=== PATIENT | female | born 1990 | race Caucasian/White ===

== ENCOUNTER → 2016-10-15 | Outpatient (CLI) | payer OTHER ==
--- NOTE | 2016-10-15 22:59 | REP ---
Clinical: Anatomical evaluation. Comparison: None . Findings: Examination demonstrates a single live intrauterine in breech presentation. motion is identified by technologist. Placenta is noted anteriorly and grade 0 without evidence for placenta previa or abruption. Amniotic fluid volume is normal. Cervix measures 5.6 cm in length and appears closed. No evidence for nuchal cord. Gestational age by current measurements 20 weeks 0 days with RANI 03/04/2017 . FHR equals 139 beats per minute. BPD 4.7 cm 20 weeks 2 days HC 17.4 cm 19 weeks 6 days AC 15.0 cm 20 weeks 2 days FL 3.3 cm 20 weeks 1 day HL 3.2 cm 20 weeks 3 days HC/AC ratio 1.16 Estimated weight 339 grams ( 56th percentile). Anatomical assessment demonstrates normal structures including cranium, choroid plexus, cavum, cerebellum/posterior fossa, facial features, lungs, diaphragm, stomach, cord insertion/three-vessel cord, kidneys/bladder, and extremities. Limited evaluation of the heart/ventricular outflow tracts and spine noted. Impression: Single live intrauterine in breech presentation. Anatomical limitations as noted above. Remainder of the assessment appears normal. Signed by Kale Ruiz MD 10/15/2016 10:50 P
== END ==
LOC: M SMT 14:45
PROVIDERS: ATTEND Advanced Practice Midwife
DX: Z34.82 Encounter for supervision of other normal pregnancy, second trimester (principal)

== ENCOUNTER → 2016-11-22 | Outpatient (CLI) | payer OTHER ==
--- NOTE | 2016-11-22 16:02 | REP ---
Obstetric sonography: History: Supervision of followup anatomy. Comparison study: 10/15/2016. Findings: Scanning through the gravid uterus demonstrates a viable single intrauterine gestation in a cephalic lie. motion is observed and heart rate is recorded at 133 beats per minute. An anterior grade zero placenta is seen without evidence of previa or abruption. Amniotic fluid is subjectively normal. Closed cervical length is 3.9 cm, measured transabdominally. No extrauterine abnormality is observed. There has been appropriate interval growth. Umbilical cord is seen draping across the [place] shoulders. No anomaly is seen. The following anatomic structures are identified and felt to be sonographically unremarkable today: cranium, choroid plexus, cavum, cerebellum and posterior fossa, face and profile, lungs, four-chamber heart with left and right ventricular outflow tract views, diaphragm, left-sided stomach, abdominal wall cord insertion, three-vessel umbilical cord, kidneys and bladder, spine, upper and lower extremities. Biometry chart: BPD 6.8 cm = 27 weeks 3 days Head circumference 24.8 cm = 27 weeks 0 days Abdominal circumference 22.6 cm = 27 weeks 0 days Femur length 5.2 cm = 27 weeks 6 days Humeral length 4.6 cm = 27 weeks 3 days Cerebellar diameter 2.9 cm = 25 weeks 3 days HC/AC ratio normal 1.1, cephalic index normal 0.77, estimated weight 1059 grams, 2 pounds 5 ounces, greater than 97th percentile for 25 weeks 3 days. Impression: Viable single intrauterine gestation at 27 weeks a 0 days by today's composite sonographic criteria. Expected gestational age estimate based on prior sonography is 25 weeks 3 days. RANI by prior sonography 03/04/2017. anatomic survey is felt to be complete. Estimated weight greater than 97th percentile. Signed by Sekou Mcnamara MD 11/22/2016 04:25 P
== END ==
LOC: M SMT 14:07
PROVIDERS: ATTEND Advanced Practice Midwife
DX: Z34.82 Encounter for supervision of other normal pregnancy, second trimester (principal)

== ENCOUNTER → 2016-12-11 | Outpatient (CLI) | payer OTHER ==
[2016-12-11 14:01] LABS: BASO % 0.3 % (0.0-1.0); EOS # 0.1 K/mm3 (0.0-0.50); EOS % 1.2 % (0.0-3.0); LARGE UNSTAINED CELL # 0.1 K/mm3 (0.0-0.4); LARGE UNSTAINED CELL % 1.2 % (0.0-4.0); LYMPH # 1.5 K/mm3 (1.5-6.5); MEAN CORPUSCULAR HEMOGLOBIN 30.4 pg (27.0-33.0); MEAN CORPUSCULAR HGB CONC 32.6 g/dl (32.0-36.5); MEAN CORPUSCULAR VOLUME 93.1 fl (80.0-96.0); MONO # 0.5 K/mm3 (0.0-0.8); MONO % 4.6 % (0.0-5.0); NEUTROPHILS # 8.4 K/mm3 (1.8-7.7); NEUTROPHILS % 78.7 % (36.0-66.0); PLATELET COUNT, AUTOMATED 251 k/mm3 (150-450); RED CELL DISTRIBUTION WIDTH 13.2 % (11.5-14.5); WHITE BLOOD COUNT 10.6 K/mm3 (4.0-10.0)
== END ==
LOC: M WUC 09:36
PROVIDERS: ATTEND Advanced Practice Midwife
DX: Z34.83 Encounter for supervision of other normal pregnancy, third trimester (principal)

== ENCOUNTER → 2016-12-18 | Outpatient (CLI) | payer OTHER ==
--- NOTE | 2016-12-18 08:31 | REP ---
Right upper quadrant sonography: History: Upper abdominal pain. Comparison study: No comparison study. The patient is . Findings: Scanning through the right upper quadrant of the abdomen demonstrates a normal sized, thin-walled gallbladder without evidence of stone or polyp. Common bile duct is normal measuring 0.4 cm in greatest diameter. No focal liver lesion is seen. Liver size is normal. No pancreatic abnormality is observed. No right renal abnormality is seen. There is no evidence of ascites. The right kidney measures 11.1 x 5.3 x 4.9 cm. heart rate is recorded at 144 beats per minute. Impression: Negative right upper quadrant sonography. Signed by Sekou Mcnamara MD 12/18/2016 08:24 A
[2016-12-18 10:01] LABS: MEAN CORPUSCULAR HEMOGLOBIN 30.7 pg (27.0-33.0); MEAN CORPUSCULAR HGB CONC 33.5 g/dl (32.0-36.5); MEAN CORPUSCULAR VOLUME 91.6 fl (80.0-96.0); RED CELL DISTRIBUTION WIDTH 13.1 % (11.5-14.5); WHITE BLOOD COUNT 9.8 K/mm3 (4.0-10.0)
[2016-12-18 10:12] LABS: ALBUMIN 2.5 GM/DL (3.2-5.2); ALBUMIN/GLOBULIN RATIO 0.81 (1.00-1.93); ALKALINE PHOSPHATASE 111 U/L (45-117); ALT/SGPT 15 U/L (12-78); AMYLASE 52 U/L (25-115); AST/SGOT 16 U/L (15-37); BILIRUBIN,DIRECT < 0.1 MG/DL (0.0-0.2); BILIRUBIN,TOTAL 0.3 MG/DL (0.2-1.0); TOTAL PROTEIN 5.6 GM/DL (6.4-8.2)
[2016-12-18 14:04] LABS: CONTROL LINE MONO EB INT CTR LINE PRESENT; MONO REFLEX EBV VCA IgM NEGATIVE (NEGATIVE)
== END ==
LOC: M LAB 07:51 → M RAD 07:51
PROVIDERS: ATTEND Advanced Practice Midwife
DX: R10.11 Right upper quadrant pain (principal)

== ENCOUNTER → 2016-12-24 | Outpatient (CLI) | payer OTHER | LOC: M LAB 09:23 | PROVIDERS: ATTEND Advanced Practice Midwife | DX: Z34.82 Encounter for supervision of other normal pregnancy, second trimester (principal) ==

== ENCOUNTER → 2017-02-06 | Outpatient (REF) | payer OTHER | LOC: M LAB REF 17:06 | PROVIDERS: ATTEND Advanced Practice Midwife | DX: O24.410 Gestational diabetes mellitus in pregnancy, diet controlled (principal) ==

== ENCOUNTER → 2017-02-07 | Outpatient (CLI) | payer OTHER ==
--- NOTE | 2017-02-07 18:19 | REP ---
OB ULTRASOUND: HISTORY: growth. COMPARISON: 10/15/2016 A single intrauterine is present in vertex presentation. BPD 9.5 cm = 38 weeks 4 days HC 33.9 cm = 39 weeks 0 days AC 32.4 cm = 36 weeks 2 days FL 7.0 cm = 36 weeks 0 days HL 6.2 cm = 36 weeks 1 day heart rate is 128 beats per minute. weight is 3021 grams. The placenta is anterior. There is no placental previa or abruption. The amniotic fluid is within normal limits. The YARITZA is 12.6. There is no abnormality in the adnexal or cul-de-sac. Cervix length is 3.6 cm. IMPRESSION: A single intrauterine in present in vertex presentation. Gestational age by ultrasound is 37 weeks 1 day. Signed by Jay Rogers MD 02/07/2017 06:31 P
== END ==
LOC: M RAD 16:56
PROVIDERS: ATTEND Advanced Practice Midwife
DX: O24.410 Gestational diabetes mellitus in pregnancy, diet controlled (principal)

== ENCOUNTER → 2017-02-25 | Outpatient (CLI) | payer OTHER ==
[~2017-02-25] MED LIST: ALBU17IN INH; CALC600T57 PO; DHA1CAP2 PO; PERC5TAB6 PO; PREN1TAB11 PO
--- NOTE | 2017-02-25 17:13 | REP ---
Clinical: Growth discrepancy . Comparison: 02/07/2017 . Findings: Examination demonstrates a single live advanced intrauterine in cephalic presentation. motion is identified by technologist. Placenta is noted anteriorly and grade II without evidence for placenta previa or abruption. Amniotic fluid volume is lower limits of normal. Nuchal cord cannot be excluded. Gestational age by LMP 39 weeks 0 days with RANI 03/04/2017 . Gestational age by current measurements 40 weeks 0 days with RANI 02/25/2017 . FHR equals 136 beats per minute. BPD 9.9 cm 40 weeks 4 days HC 35.5 cm 41 weeks 4 days AC 39.3 cm (beyond range) FL 7.9 cm 40 weeks 1 day HL 6.7 cm 39 weeks 1 day HC/AC ratio 0.90 Estimated weight 4629 grams (greater than 97%). Amniotic fluid index equals 7.3 cm (7.2 - 22.6). Impression: Estimated weight greater than 97 percentile Amniotic fluid volume lower limits of normal. Signed by Kale Ruiz MD 02/25/2017 05:04 P
== END ==
LOC: M RAD 16:13
PROVIDERS: ATTEND Advanced Practice Midwife
DX: O26.843 Uterine size-date discrepancy, third trimester (principal); O24.410 Gestational diabetes mellitus in pregnancy, diet controlled; Z3A.39 39 weeks gestation of pregnancy

== ENCOUNTER 2017-03-04 05:42 | Inpatient (IN) | payer OTHER ==
[2017-03-04] VITALS (9 sets, daily range): BP systolic 114–152; BP diastolic 62–95
[~2017-03-04] VITALS: Ht 157.5 cm; Wt 92.0 kg
[~2017-03-04 05:42] MED LIST changes: -PERC5TAB6 PO
[2017-03-04] MEDS ORDERED: LR 800 ML IV ONE (06:00)
[2017-03-04] MEDS ORDERED: LR 1,000 ML IV SCH ×2 (06:00→09:45)
[2017-03-04] MEDS ORDERED: BICITRA 30ML SOLN UDC PO ONE (06:00)
[2017-03-04 06:41] LABS: MEAN CORPUSCULAR HEMOGLOBIN 31.8 pg (27.0-33.0); MEAN CORPUSCULAR HGB CONC 34.4 g/dl (32.0-36.5); MEAN CORPUSCULAR VOLUME 92.5 fl (80.0-96.0); RED CELL DISTRIBUTION WIDTH 13.8 % (11.5-14.5); WHITE BLOOD COUNT 8.9 K/mm3 (4.0-10.0)
[2017-03-04] MEDS ORDERED: MORPHINE PRES-FREE INJ 10 MG/10 ML VIAL (J2274) As Ordered ONE (07:14)
[2017-03-04] MEDS ORDERED: METOCLOPRAMIDE INJ 10MG/2ML VIAL (J2765) IV PRN ×2 (07:49→09:45)
[2017-03-04] MEDS ORDERED: ONDANSETRON 4MG/2ML VIAL (J2405) IV PRN ×2 (07:49→09:45)
[2017-03-04] MEDS ORDERED: NALBUPHINE HCL 10 MG/ML AMP (J2300) IV PRN (07:49)
[2017-03-04] MEDS ORDERED: NALOXONE INJ 0.4 MG/1 ML VIAL (J2310) IV PRN ×2 (07:49)
[2017-03-04] MEDS ORDERED: LIDOCAINE 2% INJ 100 MG/5 ML SDV (FOR ANES.) As Ordered ONE (08:34)
[2017-03-04] MEDS ORDERED: ROCURONIUM BROMIDE 50 MG/5 ML VIAL As Ordered ONE (08:34)
[2017-03-04] MEDS ORDERED: PROPOFOL 200 MG/20 ML VIAL As Ordered ONE (08:34)
[2017-03-04] MEDS ORDERED: SUCCINYLCHOLINE 100 MG/5 ML SYRINGE (J0330) As Ordered ONE (08:34)
[2017-03-04] MEDS ORDERED: KETOROLAC 60 MG/2 ML VIAL (J1885) As Ordered ONE (08:35)
[2017-03-04] MEDS ORDERED: ONDANSETRON 4MG/2ML VIAL (J2405) As Ordered ONE ×2 (08:35→09:20)
[2017-03-04] MEDS ORDERED: OXYTOCIN INJ 10 UNITS/ML VIAL (J2590) As Ordered ONE (08:36)
[2017-03-04] MEDS ORDERED: GLYCOPYRROLATE INJ 0.2 MG/ML 2 ML VIAL As Ordered ONE (08:37)
[2017-03-04] MEDS ORDERED: NEOSTIGMINE 10 MG/10 ML VIAL (J2710) As Ordered ONE (08:37)
[2017-03-04] MEDS: LR 1,000 ML IV SCH ×2 (08:57→16:57)
[2017-03-04] MEDS ORDERED: RHOGAM 300 MCG (1500 IU) INJ (J2790) IM SCH (09:00)
[2017-03-04] MEDS ORDERED: DOCUSATE SODIUM 100 MG CAP PO PRN (09:00)
[2017-03-04] MEDS ORDERED: OXYTOCIN DRIP 30 UNITS in APPROPRIATE DILUENT 1 EA IV ONE (09:00)
[2017-03-04] MEDS ORDERED: PERCOCET 5MG/325MG TAB PO PRN (09:00)
[2017-03-04] MEDS: PRENATAL VITAMIN TAB PO SCH (09:00)
[2017-03-04] MEDS ORDERED: MEASLES,MUMPS,RUBELLA VACCINE INJ (MMR-II) (90707) SC SCH (09:00)
[2017-03-04] MEDS: ONDANSETRON 4MG/2ML VIAL (J2405) IV PRN ×2 (09:23→17:08)
[2017-03-04] MEDS ORDERED: PERC5TAB6 PO (09:39)
[2017-03-04] MEDS ORDERED: MEPERIDINE INJ 25 MG/ML VIAL (J2175) IV PRN (09:45)
[2017-03-04] MEDS ORDERED: KETOROLAC 30 MG/ML VIAL (J1885) IV PRN (09:45)
[2017-03-04] MEDS ORDERED: fentaNYL 100 MCG/2 ML INJECTION (J3010) IV PRN (09:45)
[2017-03-04] MEDS ORDERED: METOCLOPRAMIDE INJ 10MG/2ML VIAL (J2765) As Ordered ONE (09:53)
[2017-03-04] MEDS ORDERED: OXYTOCIN DRIP 30 UNITS in APPROPRIATE DILUENT 1 EA IV SCH (11:45)
[2017-03-04] MEDS: KETOROLAC 30 MG/ML VIAL (J1885) IV SCH ×2 (14:54→21:09)
--- NOTE | 2017-03-04 18:26 | RO ---
DATE OF PROCEDURE: 03/04/2017 PREPROCEDURE DIAGNOSES: 40 weeks 0/7 days gestation, Suspected macrosomia. POSTPROCEDURE DIAGNOSES: 40 weeks 0/7 days gestation, Suspected macrosomia. PROCEDURE: Primary low transverse section. SURGEON: Jay Singh MD CATTLE BROKER: Chriss Redd ANESTHESIA: Spinal, converted to general preoperatively. ESTIMATED BLOOD LOSS: 500 mL. URINE OUTPUT: 10 mL. FINDINGS: 10 pound 5 ounce or 4674 gram male , Scores 9 and 9. DESCRIPTION OF PROCEDURE: The patient was taken the operating room where spinal anesthesia was induced after noting high spinal the decision was made to convert preoperative to general anesthesia. This was performed without difficulty by anesthesia. The patient was prepped and draped in a sterile fashion in the supine position. A Bland catheter was then laced. A Pfannenstiel skin incision was made with a scalpel and carried through to the fascia. The fascia was nicked and extended. The fascia was resected of the rectus muscles. The peritoneal cavity was entered. A bladder flap was created. A curvilinear incision was made in the lower uterine segment. The infant was delivered from the vertex position without difficulty. The shoulders were delivered with ease. The cried spontaneously. The cord was doubly clamped and cut. The infant was handed off to the awaiting neonatologists. The placenta was expressed. The uterus was exteriorized. The uterine incision was closed with #0 Vicryl in a running locked fashion. A second imbricating layer of #0 Vicryl was placed. The uterus was placed back in the abdominal cavity. The peritoneum was closed with #2-0 Vicryl. The fascia was closed with# 0 Vicryl in a running fashion. The deep layer was irrigated and closed with #3-0 chromic. The skin was closed with #4-0 Monocryl subcuticular sutures. Sponge, instrument and needle counts were correct.
[2017-03-05 02:20] VITALS: BP 111/71
[2017-03-05] MEDS: KETOROLAC 30 MG/ML VIAL (J1885) IV SCH ×2 (03:04→09:18)
[2017-03-05] MEDS: LR 1,000 ML IV SCH ×3 (03:04→11:58)
[2017-03-05] MEDS ORDERED: LR 1,000 ML IV ONE (03:30)
[2017-03-05 06:22] VITALS: BP 125/69
[2017-03-05 07:18] LABS: MEAN CORPUSCULAR HEMOGLOBIN 32.3 pg (27.0-33.0); RED CELL DISTRIBUTION WIDTH 13.9 % (11.5-14.5); WHITE BLOOD COUNT 9.9 K/mm3 (4.0-10.0)
[2017-03-05] MEDS: PERCOCET 5MG/325MG TAB PO PRN ×4 (07:38→22:08)
[2017-03-05] MEDS: PRENATAL VITAMIN TAB PO SCH (09:18)
[2017-03-05 09:59] VITALS: BP 123/60
[2017-03-05 14:00] VITALS: BP 134/71
[2017-03-05] MEDS: IBUPROFEN 800 MG TAB PO SCH (17:01)
[2017-03-05 17:40] VITALS: BP 124/76
[2017-03-05 22:09] VITALS: BP 122/65
[2017-03-06] MEDS: IBUPROFEN 800 MG TAB PO SCH ×2 (00:45→08:25)
[2017-03-06] MEDS: PERCOCET 5MG/325MG TAB PO PRN (04:54)
[2017-03-06 05:40] VITALS: BP 122/73
[2017-03-06] MEDS: PRENATAL VITAMIN TAB PO SCH (08:24)
--- NOTE | 2017-03-06 10:03 | DSES ---
DATE OF ADMISSION: 03/04/2017 DATE OF DISCHARGE: 26-year-old, 1 at 40 and 0/7 weeks gestation presents for a primary section due to suspected macrosomia. She has gestational diabetes, which was diet controlled. Estimated weight by Jose Juan's was greater than 4600 grams. HOSPITALIZATION COURSE; On 03/04/2017, the patient underwent a primary low transverse section for a 10 pound 5 ounce male infant, scores of 9 and 9. There were no complications. Her postoperative course was unremarkable. She had adequate return of bladder and bowel function. She was deemed stable for discharge on postoperative day #2. ADMISSION DIAGNOSES: 1. 40 weeks. 2. Suspected macrosomia. DISCHARGE DIAGNOSIS: Delivered. PROCEDURE: Primary low transverse section. DISPOSITION: The patient will followup with Dr. Singh in 2 weeks for incision check. Postoperative instructions were reviewed.
[2017-03-06] MEDS ORDERED: IBUP-1114 PO (11:13)
== END 2017-03-06 14:00 | disposition home or self-care (01) | DRG 540 ==
LOC: M LDI 05:42 → M OBS 11:09
PROVIDERS: ADMIT Specialist; ATTEND Specialist
PROC: 10D00Z1 Extraction of Products of Conception, Low, Open Approach (ICD-10-PCS; principal; 2017-03-04 07:30)
DX: O36.63X0 Maternal care for excessive fetal growth, third trimester, not applicable or unspecified (principal); O24.420 Gestational diabetes mellitus in childbirth, diet controlled; Z3A.40 40 weeks gestation of pregnancy; Z37.0 Single live birth

== ENCOUNTER → 2017-05-22 | Outpatient (CLI) | payer OTHER ==
[~2017-05-22] MED LIST changes: +IBUP-1114 PO; +PERC5TAB12 PO
[2017-05-22 13:56] LABS: ALBUMIN/GLOBULIN RATIO 1.25 (1.00-1.93); ALKALINE PHOSPHATASE 140 U/L (45-117); ALT/SGPT 21 U/L (12-78); ANION GAP 6 MEQ/L (8-16); AST/SGOT 15 U/L (15-37); BILIRUBIN,TOTAL 0.5 MG/DL (0.2-1.0); BLOOD UREA NITROGEN 9 MG/DL (7-18); CALCIUM LEVEL 9.3 MG/DL (8.5-10.1); CARBON DIOXIDE LEVEL 31 MEQ/L (21-32); CHLORIDE LEVEL 106 MEQ/L (98-107); CHOLESTEROL LEVEL 197 MG/DL (<200); CREATININE FOR GFR 0.56 MG/DL (0.55-1.02); GLOMERULAR FILTRATION RATE > 60.0 (>60); GLUCOSE, FASTING 87 MG/DL (70-105); POTASSIUM SERUM 4.2 MEQ/L (3.5-5.1); SODIUM LEVEL 143 MEQ/L (136-145); TOTAL PROTEIN 7.2 GM/DL (6.4-8.2); TRIGLYCERIDES LEVEL 232 MG/DL (<150)
== END ==
LOC: M WUC 10:16
PROVIDERS: ATTEND Nurse Practitioner Family
DX: Z13.220 Encounter for screening for lipoid disorders (principal)

== ENCOUNTER → 2017-07-01 | Outpatient (CLI) | payer OTHER ==
[2017-07-01 17:56] LABS: FREE T4 0.92 NG/DL (0.76-1.46)
[2017-07-03 14:25] LABS: SJOGREN'S ANTI SS-A 2.8 AI (0.0-0.9); SJOGREN'S ANTI SS-B <0.2 AI (0.0-0.9)
== END ==
LOC: M WUC 14:24
PROVIDERS: ATTEND Nurse Practitioner Family
DX: L65.9 Nonscarring hair loss, unspecified (principal)

== ENCOUNTER → 2017-11-06 | Outpatient (CLI) | payer OTHER | LOC: M WUC 14:41 | DX: M54.5 Low back pain (principal) | CPT/HCPCS: 72110 ==

== ENCOUNTER → 2020-03-02 | Outpatient (CLI) | payer OTHER ==
[2020-03-02 21:47] LABS: CHLAMYDIA DNA AMPLIFICATION NEGATIVE (NEGATIVE); GC DNA AMPLIFICATION NEGATIVE (NEGATIVE)
== END ==
LOC: M WUC 12:56
PROVIDERS: ATTEND Advanced Practice Midwife
DX: O26.851 Spotting complicating pregnancy, first trimester (principal)

== ENCOUNTER → 2020-03-05 | Outpatient (CLI) | payer OTHER | LOC: M WUC 12:43 | PROVIDERS: ATTEND Advanced Practice Midwife | DX: O26.851 Spotting complicating pregnancy, first trimester (principal); Z3A.00 Weeks of gestation of pregnancy not specified ==

== ENCOUNTER → 2020-03-29 | Outpatient (CLI) | payer OTHER ==
[~2020-03-29] MED LIST changes: +B-12100T2 PO; +METF500T13 PO; +SM G150T PO
[2020-03-29 16:25] LABS: GLUCOSE CHALLENGE TEST 1 HOUR 173 MG/DL (LESS THAN 140)
[2020-03-29 16:29] LABS: HEMATOCRIT 38.2 % (36.0-47.0); HEMOGLOBIN 12.7 g/dl (12.0-15.5); MEAN CORPUSCULAR HEMOGLOBIN 31.4 pg (27.0-33.0); MEAN CORPUSCULAR HGB CONC 33.2 g/dl (32.0-36.5); MEAN CORPUSCULAR VOLUME 94.6 fl (80.0-96.0); PLATELET COUNT, AUTOMATED 260 10^3/uL (150-450); RED BLOOD COUNT 4.04 10^6/uL (4.00-5.40)
[2020-03-29 16:46] LABS: HEMOGLOBIN A1c 5.4 %
[2020-03-29 17:20] LABS: HIV 1&2 SCREEN CENTAUR NEGATIVE (NEGATIVE)
[2020-03-29 20:31] LABS: CHLAMYDIA DNA AMPLIFICATION NEGATIVE (NEGATIVE); GC DNA AMPLIFICATION NEGATIVE (NEGATIVE)
[2020-03-31 17:24] LABS: HEPATITIS B SURFACE ANTIGEN NEGATIVE (NEGATIVE)
[2020-03-31 17:53] LABS: HEPATITIS C VIRUS ABY INDEX 0.2 INDEX (<0.8)
== END ==
LOC: M WUC 13:19
PROVIDERS: ATTEND Advanced Practice Midwife
DX: O34.211 Maternal care for low transverse scar from previous cesarean delivery (principal)

== ENCOUNTER → 2020-04-03 | Outpatient (CLI) | payer OTHER ==
[~2020-04-03] MED LIST changes: -B-12100T2 PO; -METF500T13 PO; -SM G150T PO
== END ==
LOC: M LAB 08:13
PROVIDERS: ATTEND Advanced Practice Midwife
DX: O24.319 Unspecified pre-existing diabetes mellitus in pregnancy, unspecified trimester (principal)

== ENCOUNTER → 2020-04-25 | Outpatient (CLI) | payer OTHER ==
[2020-04-25 20:16] LABS: BLOOD UREA NITROGEN 6 MG/DL (7-18); CARBON DIOXIDE LEVEL 25 mmol/L (20-29); CHLORIDE LEVEL 105 MEQ/L (98-107); CREATININE FOR GFR 0.49 MG/DL (0.55-1.30); GLOMERULAR FILTRATION RATE > 60.0 (>60); GLUCOSE, FASTING 99 MG/DL (70-100); POTASSIUM SERUM 3.9 MEQ/L (3.5-5.1); SODIUM LEVEL 139 MEQ/L (136-145)
[2020-04-25 20:17] LABS: ALBUMIN 2.8 GM/DL (3.2-5.2); ALT/SGPT 11 IU/L (0-32); BILIRUBIN,TOTAL 0.3 MG/DL (0.2-1.0); CALCIUM LEVEL 8.6 MG/DL (8.5-10.1); TOTAL PROTEIN 6.2 GM/DL (6.4-8.2)
[2020-04-27 12:08] LABS: SSA SJOGRENS A 6.7 AI (0.0-0.9); SSB SJOGRENS B <0.2 AI (0.0-0.9)
== END ==
LOC: M WUC 11:31
PROVIDERS: ATTEND Advanced Practice Midwife
DX: M35.00 Sjogren syndrome, unspecified (principal); Z87.59 Personal history of other complications of pregnancy, childbirth and the puerperium

== ENCOUNTER → 2020-05-16 | Outpatient (CLI) | payer OTHER ==
--- NOTE | 2020-07-06 08:11 | REP ---
OBSTETRIC SONOGRAPHY HISTORY: Supervision of for anatomy. History of prior low-transverse uterine scar from previous delivery. NOTE: This report was delayed due to a protracted episode of network disruption experienced by this facility. This study is presented to me for interpretation on 06/29/2020. SONOGRAPHIC FINDINGS: Scanning through the gravid uterus demonstrates a single living intrauterine gestation in a transverse head to the maternal left lie. Placenta is anterior grade 0 without evidence of previa or abruption. Amniotic fluid is subjectively normal. Closed cervical length is viewed transabdominally and measured at 3.3 cm. No extrauterine abnormality is observed. heart rate is recorded at 153 beats per minute. No abnormality is observed. anatomic survey is incomplete. spine, four chamber heart and outflow tract views, kidneys, and facial profile are less than optimally seen due to position. The following additional anatomic structures are identified and felt to be unremarkable: Cisterna magna, cavum septum pellucidum, thalami, left-sided stomach, urinary bladder, three-vessel cord, abdominal wall cord insertion, upper and lower extremities. BIOMETRY CHART: BPD 39 mm 18 weeks 1 day Head circumference 140 mm 17 weeks 3 days Abdominal circumference 118 mm 17 weeks 4 days Femur length 25 mm 17 weeks 6 days Humeral length 25 mm 17 weeks 6 days Cerebellar diameter 16 mm 17 weeks 5 days IMPRESSION: Viable single intrauterine gestation at 17 weeks 6 days by todays composite criteria. Estimated date of delivery (RANI) 10/18/2020. anatomic survey is incomplete as above. MTDD
== END ==
LOC: M WHC 16:42
PROVIDERS: ATTEND Advanced Practice Midwife
DX: O34.211 Maternal care for low transverse scar from previous cesarean delivery (principal)

== ENCOUNTER → 2020-06-02 | Outpatient (CLI) | payer OTHER ==
--- NOTE | 2020-07-10 07:29 | REP ---
OBSTETRIC ULTRASOUND FOR ANATOMY FOLLOWUP Delay in reporting results from hospital computer system malfunction from malware/ ransomware. INDICATION: On the prior study dated 05/16/2020, the spine, kidneys, four- chamber view of the heart, right and left cardiac outflow tracts, and facial profile and upper lip could not be satisfactory demonstrated. The study today is for followup of these structures. FINDINGS: On the study today, there is a single intrauterine gestation in a transverse lie with the head in the maternal left. The spine, kidneys, and four-chamber view of the heart are satisfactorily demonstrated and are unremarkable. The left ventricular outflow tract is satisfactorily demonstrated and unremarkable. The cardiac right ventricular outflow tract, face and lips are again suboptimally demonstrated. heart rate is 140 beats per minute. weight is 331 grams, this is the 34th percentile. The amniotic fluid volume subjectively is normal. Cervix is 3.1 cm in length. The remainder of the anatomy was unremarkable previously and is not repeated. MTDD
== END ==
LOC: M WHC 13:41
PROVIDERS: ATTEND Advanced Practice Midwife
DX: Z34.82 Encounter for supervision of other normal pregnancy, second trimester (principal)

== ENCOUNTER → 2020-06-29 | Outpatient (CLI) | payer OTHER ==
--- NOTE | 2020-07-14 13:12 | REP ---
FOLLOW-UP OBSTETRICAL ULTRASOUND FINDINGS: Ultrasound examination demonstrates a single live intrauterine in transverse lie with head to maternal left. Placenta noted anteriorly and grade 0 without placenta previa or abruption. Amniotic fluid volume is normal. Cervix measures 3.5 cm in length and appears closed. No evidence for nuchal cord. Gestational age by last menstrual period (LMP) 24 weeks 1 day with estimated date of delivery 10/18/2020. Gestational age by current measurements 25 weeks 0 days with estimated date of delivery 10/12/2020. heart rate (FHR) 139 beats per minute. HC/AC ratio 1.09. Estimated weight 775 grams (61st percentile). Anatomical assessment demonstrates normal cranium, ventricles, choroid plexus, cerebellum/posterior fossa, facial features, lungs, four chamber heart/ventricular outflow tracts, diaphragm, stomach, three-vessel cord/cord insertion, kidneys, bladder, spine, and extremities. IMPRESSION: Single live intrauterine in transverse lie demonstrating appropriate estimated weight. Anatomical assessment is complete and normal. No gross abnormalities are identified MTDD
== END ==
LOC: M RAD 15:13
PROVIDERS: ATTEND Advanced Practice Midwife
DX: O32.2XX0 Maternal care for transverse and oblique lie, not applicable or unspecified (principal); Z36.2 Encounter for other antenatal screening follow-up; Z3A.25 25 weeks gestation of pregnancy

== ENCOUNTER → 2020-07-17 | Outpatient (CLI) | payer OTHER ==
[2020-07-17 09:45] LABS: HEMATOCRIT 35.3 % (36.0-47.0); HEMOGLOBIN 11.3 g/dl (12.0-15.5); MEAN CORPUSCULAR HEMOGLOBIN 30.6 pg (27.0-33.0); MEAN CORPUSCULAR VOLUME 95.7 fl (80.0-96.0); PLATELET COUNT, AUTOMATED 233 10^3/uL (150-450); RED BLOOD COUNT 3.69 10^6/uL (4.00-5.40); WHITE BLOOD COUNT 7.4 10^3/uL (4.0-10.0)
== END ==
LOC: M LAB 08:10
PROVIDERS: ATTEND Advanced Practice Midwife
DX: Z34.82 Encounter for supervision of other normal pregnancy, second trimester (principal); Z3A.00 Weeks of gestation of pregnancy not specified

== ENCOUNTER → 2020-08-21 | Outpatient (CLI) | payer OTHER ==
--- NOTE | 2020-08-22 07:04 | REP ---
INDICATION: PREG 30WKS GROWTH YARITZA COMPARISON: 06/29/2020 TECHNIQUE: Transabdominal obstetrical ultrasound with color Doppler evaluation. FINDINGS: Examination demonstrates a single live intrauterine in cephalic presentation. motion is identified by technologist. Placenta is noted anterior and grade 1 without evidence for placenta previa or abruption. Amniotic fluid volume is normal. Cervix measures 3.7 cm in length and appears closed.. Gestational age by LMP 31 weeks 5 days with RANI 10/18/2020. Gestational age by current measurements 31 weeks 5 days with RANI 10/18/2020. FHR equals 160 beats per minute. BPD: 7.7 cm 30 weeks 6 days HC: 28.6 cm 31 weeks 3 days AC: 28.9 cm 32 weeks 6 days FL: 6.2 cm 32 weeks 0 days HL: 5.5 cm 31 weeks 6 days HC/AC: 0.99 Estimated weight 1939 grams (58thpercentile). Amniotic fluid index: 10.1 cm (8.7-24.1) Umbilical artery SD ratio: 2.11 (1.86-3.90) IMPRESSION: Single live advanced gestation in cephalic presentation demonstrating appropriate interval growth. <Electronically signed by Kale Ruiz > 08/22/20 0700
== END ==
LOC: M RAD 16:21
PROVIDERS: ATTEND Advanced Practice Midwife
DX: Z34.83 Encounter for supervision of other normal pregnancy, third trimester (principal); Z3A.30 30 weeks gestation of pregnancy

== ENCOUNTER → 2020-09-11 | Outpatient (CLI) | payer OTHER ==
--- NOTE | 2020-09-11 21:35 | REP ---
INDICATION: GROWTH/DIABETES COMPARISON: 08/21/2020 TECHNIQUE: Transabdominal obstetrical ultrasound with color Doppler evaluation. FINDINGS: Examination demonstrates a single live intrauterine in cephalic presentation. motion is identified by technologist. Placenta is noted anterior and grade 2 without evidence for placenta previa or abruption. Amniotic fluid volume is normal. Cervix measures 3.1 cm in length and appears closed.. Gestational age by LMP 34 weeks 5 days with RANI 10/18/2020. Gestational age by current measurements 35 weeks 2 days with RANI 10/14/2020. FHR equals 158 beats per minute. BPD: 8.7 cm 35 weeks 0 days HC: 31.1 cm 34 weeks 5 days AC: 30.3 cm 34 weeks 2 days FL: 7.2 cm 36 weeks 5 days HL: 6.2 cm 36 weeks 0 days HC/AC: 1.02 Estimated weight 2589 grams (57thpercentile). YARITZA: 14.4 cm (8.0-24.9) IMPRESSION: Single live intrauterine in cephalic presentation demonstrating appropriate estimated weight and growth. <Electronically signed by Kale Ruiz > 09/11/20 [id number]
== END ==
LOC: M WHC 10:29
PROVIDERS: ATTEND Advanced Practice Midwife
DX: O24.419 Gestational diabetes mellitus in pregnancy, unspecified control (principal)

== ENCOUNTER → 2020-09-25 | Outpatient (REF) | payer OTHER ==
[~2020-09-25] MED LIST changes: +B-12100T2 PO; +METF500T13 PO; +SM G150T PO
== END ==
LOC: M SFHCWAGY 13:12
PROVIDERS: ATTEND Specialist
DX: O24.319 Unspecified pre-existing diabetes mellitus in pregnancy, unspecified trimester (principal); Z3A.00 Weeks of gestation of pregnancy not specified

== ENCOUNTER 2020-10-07 10:00 | Inpatient (IN) | payer OTHER ==
[2020-10-07] VITALS (30 sets, daily range): BP systolic 97–149; BP diastolic 56–92
[~2020-10-07] VITALS: Ht 157.5 cm; Wt 85.5 kg
[~2020-10-07 10:00] MED LIST changes: -B-12100T2 PO; -METF500T13 PO; -SM G150T PO
[2020-10-07] MEDS ORDERED: B-12100T2 PO (10:38)
[2020-10-07] MEDS ORDERED: SM G150T PO (10:38)
[2020-10-07] MEDS ORDERED: METF500T13 PO (10:38)
[2020-10-07 11:27] LABS: HEMATOCRIT 40.2 % (36.0-47.0); MEAN CORPUSCULAR HGB CONC 32.3 g/dl (32.0-36.5); MEAN CORPUSCULAR VOLUME 92.6 fl (80.0-96.0); PLATELET COUNT, AUTOMATED 247 10^3/uL (150-450); RED BLOOD COUNT 4.34 10^6/uL (4.00-5.40); WHITE BLOOD COUNT 6.9 10^3/uL (4.0-10.0)
--- NOTE | 2020-10-07 11:43 | HPEPDOC ---
Obstetrical History & Physical General Date of Admission Oct 07, 2020 at 10:00 History of Present Illness 29 yo at 38 3/7 weeks by LMP c/w 10 week ultrasound (EDC=10/18/2019) presents for labor induction. The indiction for delivery <39 weeks is Class A2GDM. Pt takes Metformin. Of note, she has had a prior section. She has no contractions. No vaginal bleeding. 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 Past Medical History Medical History Sjogren's Syndrome Surgical History: section Family History Significant Family History: No pertinent family hx Social History Family situation: Spouse/partner home Psychosocial History: No pertinent psych hx * Smoker: non-smoker Alcohol: Denies Drugs: denies Allergies Coded Allergies: No Known Allergies (Unverified , 02/28/17) Medications Scheduled Cyanocobalamin (Vitamin B-12) (Vitamin B-12) 100 Mcg Tablet, 1 TAB PO DAILY Metformin HCl (Metformin HCl) 500 Mg Tablet, 500 MG PO BID Vit No.124/Iron/Folic ( Vitamin Tablet) 1 Tab Tab, 1 TAB PO DAILY Miscellaneous Medications Garlic (Garlic) 1 Each Tablet, 150 MG PO Physical Examination Physical Examination GENERAL: Alert and oriented times three. BREAST: . ABDOMEN: Gravid and non-tender to touch. FETUS: Is vertex (VTX) by sterile vaginal examination (SVE), fetus is vertex (VTX) by Jose Juan. HEART RATE: Regular rate and rhythm. LUNGS: Clear to auscultation (CTA). EXTREMITIES: No edema. No clonus. Deep tendon reflexes (DTRs) + . Laboratory Data 24H LABS Laboratory Tests 2 10/07/20 10:15: Serology Scanned Report Hepatitis B Testing 10/07/20 11:01: Bedside Glucose (Misc Panel) 86 10/07/20 11:11: Nucleated Red Blood Cells % (auto) 0.0 CBC/BMP Laboratory Tests 10/07/20 11:11 Pertinent Laboratoy Data Blood Type: A+ Group B Streptococcus: Positive Anatomy Ultrasound Ultrasound Date: Sep 11, 2020 Normal Anatomy: Yes Placenta Previa: No Other Ultrasounds Information EFW 57% on 09/11/2020 Vaginal Examination Dilation: 1cm Effacement: 50% Station: -2 Cervical Consistency: Soft Cervical Position: Posterior Presentation: Cephalic presentation Assessment Variability: Moderate Accelerations: Positive Decelerations: None Tocometer Contractions: Yes Frequency: irregular Assessment/Plan Assessment [Pt is a 29-year-old (G)2 para (P)2 at 38+3 weeks by LMP c/w 10-week ultrasound presents for labor induction due to A2GDM. She has had a prior section Plan Admit and orient. Business Writer and consent. Diet: reg. Group B Streptococcus (GBS) positive. Labs and intravenous (IV) per unit protocol. Counseled on Pitocin and induction of labor (IOL). C-S as appropriate Risks of TOLAC discussed. WILLARD YOUNG MD Oct 07, 2020 11:43
--- NOTE | 2020-10-07 11:46 | IPNPDOC ---
Obstetrical Progress Note Date of Service Oct 07, 2020 Subjective No complaints. Assessment Variability: Moderate Accelerations: Positive Decelerations: None Heart Rate Tracing: Category I Tocometer Contractions: Yes Frequency: irregular Strength: palpated as mild Sterile Vaginal Examination Dilation: 1cm Effacement (%): 50% Station: -2 Cervical Position: Posterior Postion/Presentation: Cephalic presentation Assessment and Plan Status: Reassuring Group B Streptococcus: Positive Additional Comments 29 yo at 38 3/7 weeks gestation by LMP c/w 10 week ultrasound presents for labor induction due to GDM; Pt plans TOLAC Cook's Catheter with 40 cc NS placed without difficulty Plan to start Pitocin Treat for GBS in labor WILLARD YOUNG MD Oct 07, 2020 11:46
[2020-10-07] MEDS ORDERED: OXYTOCIN DRIP 30 UNITS in IV 1 EA IV SCH (12:15)
[2020-10-07] MEDS: LR 1,000 ML IV SCH ×2 (12:36→23:19)
[2020-10-07] MEDS ORDERED: PENICILLIN G POTASSIUM IV 5 MU in D5W MINI-BAG PLUS 100 ML IV STA (17:09)
[2020-10-07] MEDS ORDERED: FENTANYL 2MCG/ML ROPIVACAINE 0.2% IN 0.9% NACL 100ML IVBAG As Ordered ONE (18:32)
[2020-10-07] MEDS ORDERED: EPIDURAL/PCA KEYS XX PRN (19:00)
[2020-10-07] MEDS ORDERED: diphenhydrAMINE 50MG/ML VIAL (J1200) IV PRN (19:00)
[2020-10-07] MEDS ORDERED: EPIDURAL COMMENT XX SCH (19:00)
[2020-10-07] MEDS ORDERED: ONDANSETRON 4MG/2ML VIAL IV PRN (19:00)
[2020-10-07] MEDS ORDERED: ePHEDrine SULFATE 25 MG/5 ML(5MG/ML) SYRINGE IV PRN (19:00)
[2020-10-07] MEDS ORDERED: NALOXONE INJ 0.4MG/1ML VIAL (J2310 PER 1MG) IV PRN (19:00)
[2020-10-07] MEDS ORDERED: LACTATED RINGER'S 1000 ML IV PRN (19:00)
[2020-10-07] MEDS ORDERED: REFRIGERATOR IV KEYS XX PRN (19:00)
[2020-10-07] MEDS: FENTANYL/ROPIVACAINE/NACL BAG 100 ML EPIDURAL SCH (19:03)
--- NOTE | 2020-10-07 20:19 | IPNPDOC ---
Obstetrical Progress Note Date of Service Oct 07, 2020 Subjective comfortable with epidural Objective Vital Signs Date Time Temp Pulse Resp B/P (MAP) Pulse Ox O2 Delivery O2 Flow Rate FiO2 10/07/20 19:39 67 18 108/70 (83) 10/07/20 18:37 98.0 Assessment Variability: Moderate Accelerations: Positive Heart Rate Tracing: Category I Tocometer Contractions: Yes Frequency: regular, every 1-3 min. Strength: palpated as moderate Sterile Vaginal Examination Dilation: 5 cm Effacement (%): 80% Station: -2 Cervical Consistency: Soft Cervical Position: Posterior Postion/Presentation: Cephalic presentation Assessment and Plan Age: 29 : 2 Term: 1 Status: Reassuring Additional Comments 29 yo at 38 3/7 TOLAC, A2GDM induction AROM performed for clear fluid Pitocin at 18 mu/minute epidural in place Amandeep's Catheter had come out WILLARD YOUNG MD Oct 07, 2020 20:19
[2020-10-07] MEDS: PENICILLIN G POTASSIUM IV 2.5 MU in IV 1 EA IV SCH (21:35)
[2020-10-08] VITALS (21 sets, daily range): BP systolic 100–178; BP diastolic 51–100
[2020-10-08] MEDS: LR 1,000 ML IV SCH (02:24)
[2020-10-08] MEDS: PENICILLIN G POTASSIUM IV 2.5 MU in IV 1 EA IV SCH (02:29)
[2020-10-08] MEDS: FENTANYL/ROPIVACAINE/NACL BAG 100 ML EPIDURAL SCH (04:20)
[2020-10-08 06:16] LABS: CORD GAS ABE V -2.8; CORD GAS HCO3 V 23.5 MEQ/L; CORD GAS O2 SAT V 63.6 %; CORD GAS PCO2 V 45.9 mmHg; CORD GAS PH V 7.327 UNITS; CORD GAS PO2 V 25.4 mmHg; CORD GAS SBC V 21.3 MEQ/L; CORD GAS TCO2 V 24.9 MEQ/L
[2020-10-08 06:17] LABS: CORD GAS ABE A -5.8; CORD GAS HCO3 A 24.9 MEQ/L; CORD GAS O2 SAT A 24.8 %; CORD GAS PCO2 A 72.4 mmHg; CORD GAS PH A 7.155 UNITS; CORD GAS TCO2 A 27.2 MEQ/L
--- NOTE | 2020-10-08 06:31 | DNPDOC ---
[facility] [place] Delivery Note Delivery Note DATE OF DELIVERY: October 08, 2020 PREDELIVERY DIAGNOSIS: 38-3/7 weeks' gestation, A2 Gestational diabetes, TOLAC. POST DELIVERY DIAGNOSIS: Delivered. PROCEDURE: Spontaneous vaginal delivery. FIRE LIEUTENANT MARINE: Dr. Willard Young MD ANESTHESIA: Epidural. ESTIMATED BLOOD LOSS: 300 mL. FINDINGS: 7 pound 10 ounce female , Score 8/9, nuchal cord times 1. DELIVERY SUMMARY: Patient is a 29-year-old 2 now para 2 who was admitted to labor and delivery for induction due to Class A2 GDM. She has had a prior section. She received IV Pitocin along with a Cook's Catheter. After a 3 hour 15 minute second stage of labor she had a spontaneous vaginal delivery of a 7 lb. 10 oz. female . Nuchal cord x 1 reduced manually. The shoulders delivered with ease. The was handed to the mother. The cord was doubly clamped and cut. The placenta delivered spontaneously and appeared intact. A second degree perineal laceration was repaired with 2-O Chromic under local anesthesia in the usual fashion. Sponge and needle counts were correct. WILLARD YOUNG MD Oct 08, 2020 06:31
[2020-10-08] MEDS ORDERED: DOCUSATE SODIUM 100MG CAPSULE PO PRN (06:45)
[2020-10-08] MEDS ORDERED: ACETAMINOPHEN TAB 650MG DOSE (2X325MG) PO PRN (06:45)
[2020-10-08] MEDS ORDERED: LIDOCAINE 1% MDV 20ML VIAL INFIL ONE (06:45)
[2020-10-08] MEDS ORDERED: RHOGAM 300 MCG (1500 IU) INJ (J2790) IM SCH (06:45)
[2020-10-08] MEDS ORDERED: MEASLES,MUMPS,RUBELLA VACCINE INJ (MMR-II) (90707) SC SCH (06:45)
[2020-10-08] MEDS ORDERED: METHYLERGONOVINE MALEATE 0.2 MG TAB PO PRN (06:45)
[2020-10-08] MEDS ORDERED: OXYTOCIN DRIP 30 UNITS in IV 1 EA IV ONE (06:45)
[2020-10-08] MEDS ORDERED: IBUPROFEN 600MG TAB PO PRN (06:45)
[2020-10-08] MEDS: IBUPROFEN 800 MG TAB PO PRN ×2 (06:55→17:51)
[2020-10-08] MEDS: PRENATAL VITAMINS CHEWABLE TABLET PO SCH (09:00)
[2020-10-08] MEDS: ACETAMINOPHEN 500 MG TAB PO PRN (22:04)
[2020-10-09 05:55] VITALS: BP 111/59
[2020-10-09] MEDS: BENZOCAINE 20% HEMORRHOIDAL OINTMENT 28GM TUBE TOP PRN ×2 (06:35→20:18)
[2020-10-09] MEDS: IBUPROFEN 800 MG TAB PO PRN ×2 (06:39→18:19)
--- NOTE | 2020-10-09 07:00 | IPNPDOC ---
Progress Note Date of Service: Oct 09, 2020 Progress Note SUBJECT: Pt is a 29-year-old 2 now Para 2 status post uncomplicated spontaneous vaginal delivery at 38-3/7 weeks' doing well day # 1. She has been ambulating, voiding spontaneously without issue and tolerating regular diet. Breast feeding without issue. Reports lochia is like a normal period. Patient is ambulating well. Reports some cramping with . Some pain in vaginal area. Voiding and stooling without difficulty. OBJECTIVE: VITAL SIGNS: Within normal limits, afebrile. Alert and oriented times three. Breath sounds clear to auscultation. Heart rate: Regular rate and rhythm, no murmurs, rubs or gallops. Abdomen: Fundus firm at U-2. Soft, NTTP. ASSESSMENT: Pt is a 29-year-old 2 now Para 2 status post uncomplicated spontaneous vaginal delivery after indcution for GDM, succesful , doing well on day 1. Vitals within normal limits, afebrile, hemodynamically stable with no evidence of infection. PLAN: 1. Discharge to home tomorrow most liely. 2. Tylenol and Motrin for pain. 3. Encourage breast feeding and ambulation. 5. Routine PP visit in 6 weeks in clinic. 6. Discussed return precautions at length. VS, I&O, 24H, Fishbone Vital Signs/I&O Vital Signs Date Time Temp Pulse Resp B/P (MAP) Pulse Ox O2 Delivery O2 Flow Rate FiO2 10/09/20 05:55 97.4 76 18 111/59 (76) 97 Room Air I&O- Last 24 Hours up to 6 AM 10/09/20 06:00 Intake Total 3970 ml Output Total 500 ml Balance 3470 ml WILLARD YOUNG MD Oct 09, 2020 07:00
[2020-10-09 08:00] VITALS: BP 111/59
[2020-10-09] MEDS: PRENATAL VITAMINS CHEWABLE TABLET PO SCH (08:02)
[2020-10-09] MEDS: ACETAMINOPHEN 500 MG TAB PO PRN ×2 (08:02→20:18)
[2020-10-09 18:00] VITALS: BP 133/70
[2020-10-10] MEDS: IBUPROFEN 800 MG TAB PO PRN ×3 (05:39→22:00)
[2020-10-10 06:03] VITALS: BP 112/77
--- NOTE | 2020-10-10 07:28 | DS.PDOC ---
Discharge Summary General Date of Admission Oct 07, 2020 at 10:00 Date of Discharge 10/10/20 Discharge Summary PROCEDURES PERFORMED DURING STAY: . ADMITTING DIAGNOSES: 1. IOL at Term. 2. TOLAC DISCHARGE DIAGNOSES: 1. Delivered at Term. 2. Successful . COMPLICATIONS/CHIEF COMPLAINT: Induction of Labor. HISTORY OF PRESENT ILLNESS: Kelley is a 29 y/o status post successful IOL and on day #2. Ambulating around room with ease. Voiding and passing flatus without difficulty. Tolerating a regular diet without nausea/vomiting. Reports difficulties but is supplementing with formula. Encouraged to keep trying to breastfeed and reach out for other resources. Reports lochia flow small to minimal, no clots. Denies headaches, visual changes, epigastric pain. She is currently unsure of what type of control she wants to start but declined Depo injection today. HOSPITAL COURSE: Uncomplicated. DISCHARGE MEDICATIONS: Please see below. ALLERGIES: Please see below. PHYSICAL EXAMINATION ON DISCHARGE: VITAL SIGNS: Please see below. GENERAL: Alert and oriented x3. HEENT: Normal on inspection NECK: Supple, no JVD. CARDIOVASCULAR EXAMINATION: Regular rate and rhythm, capillary refill <3 seconds. RESPIRATORY EXAMINATION: Regular rate, no accessory muscle use. ABDOMINAL EXAMINATION: Soft, nontender, not distended. Uterus firm at U-1, small lochia flow. EXTREMITIES: Non pitting mild pedal edema, no calf tenderness. Full ROM. SKIN: Intact, appropriate color for race. NEUROLOGICAL EXAMINATION: Grossly intact. Denies headache, visual disturbances. PSYCHIATRIC EXAMINATION: Denies signs of depression. LABORATORY DATA: Please see below. PROGNOSIS: Good ACTIVITY: As tolerated, pelvic rest for 6 weeks. DIET: Regular DISCHARGE PLAN: Home DISPOSITION: Stable. DISCHARGE INSTRUCTIONS: 1. Nothing in the vagina for 6 weeks. 2. Tylenol and Motrin for pain as needed. 3. Encouraged to continue . 4. Reviewed signs of preeclampsia, depression, mastitis, endometritis, and DVT/PE. Reviewed appropriate amounts of bleeding. Reviewed nothing in the vagina for 6 weeks and return to office in 6-8 weeks. ITEMS TO FOLLOWUP ON ON OUTPATIENT: 1. 6-8 week visit. DISCHARGE CONDITION: Stable. TIME SPENT ON DISCHARGE: Greater than 15 minutes. Vital Signs/I&Os Vital Signs Date Time Temp Pulse Resp B/P (MAP) Pulse Ox O2 Delivery O2 Flow Rate FiO2 10/10/20 06:03 97.8 65 18 112/77 (89) 98 Room Air Discharge Medications Scheduled Cyanocobalamin (Vitamin B-12) (Vitamin B-12) 100 Mcg Tablet, 1 TAB PO DAILY, (Reported) Metformin HCl (Metformin HCl) 500 Mg Tablet, 500 MG PO BID, (Reported) Vit No.124/Iron/Folic ( Vitamin Tablet) 1 Tab Tab, 1 TAB PO DAILY, (Reported) Miscellaneous Medications Garlic (Garlic) 1 Each Tablet, 150 MG PO, (Reported) Allergies Coded Allergies: No Known Allergies (Unverified , 02/28/17) TOOTIE SMITH CNM Oct 10, 2020 07:28
[2020-10-10] MEDS: PRENATAL VITAMINS CHEWABLE TABLET PO SCH (09:50)
[2020-10-10 18:00] VITALS: BP 139/79
[2020-10-10] MEDS: ACETAMINOPHEN 500 MG TAB PO PRN (20:15)
[2020-10-11] MEDS: ACETAMINOPHEN 500 MG TAB PO PRN (04:06)
[2020-10-11 05:33] VITALS: BP 128/63
[2020-10-11] MEDS: IBUPROFEN 800 MG TAB PO PRN (06:05)
[2020-10-11] MEDS: PRENATAL VITAMINS CHEWABLE TABLET PO SCH (08:09)
--- NOTE | 2020-10-11 08:10 | IPNPDOC ---
Progress Note Date of Service: Oct 11, 2020 Day#: 2 Progress Note SUBJECT: Status post . She has been ambulating, voiding spontaneously without issue and tolerating regular diet. Lochia decreasing/minimal. Patient is ambulating well. OBJECTIVE: VITAL SIGNS: Within normal limits, afebrile. Alert and oriented times three. Abdomen: Fundus firm at U-2. Soft, NTTP. ASSESSMENT: Status post uncomplicated spontaneous vaginal delivery. Vitals within normal limits, afebrile, hemodynamically stable with no evidence of infection. PLAN: Discharge to home today. Tylenol and Motrin for pain. Routine instructions/precautions reviewed. Routine PP visit in 6 weeks in clinic. VS, I&O, 24H, Fishbone Vital Signs/I&O Vital Signs Date Time Temp Pulse Resp B/P (MAP) Pulse Ox O2 Delivery O2 Flow Rate FiO2 10/11/20 05:33 97.3 68 17 128/63 (84) 97 Room Air I&O- Last 24 Hours up to 6 AM 10/11/20 06:00 Intake Total 840 ml Balance 840 ml TAMMY BEE DO Oct 11, 2020 08:10
[2020-10-11] MEDS: BENZOCAINE 20% HEMORRHOIDAL OINTMENT 28GM TUBE TOP PRN (12:13)
== END 2020-10-11 12:40 | disposition home or self-care (01) | DRG 560 ==
LOC: M LDI 10:00 → M OBS 10-08 09:28
PROVIDERS: ADMIT Specialist; ATTEND Specialist
PROC: 3E033VJ Introduction of Other Hormone into Peripheral Vein, Percutaneous Approach (ICD-10-PCS; 2020-10-07)
PROC: 10907ZC Drainage of Amniotic Fluid, Therapeutic from Products of Conception, Via Natural or Artificial Opening (ICD-10-PCS; 2020-10-07)
PROC: 10E0XZZ Delivery of Products of Conception, External Approach (ICD-10-PCS; principal; 2020-10-08)
PROC: 0KQM0ZZ Repair Perineum Muscle, Open Approach (ICD-10-PCS; 2020-10-08)
DX: O24.425 Gestational diabetes mellitus in childbirth, controlled by oral hypoglycemic drugs (principal); Z37.0 Single live birth; Z3A.38 38 weeks gestation of pregnancy; O34.219 Maternal care for unspecified type scar from previous cesarean delivery; O99.824 Streptococcus B carrier state complicating childbirth; O69.81X0 Labor and delivery complicated by cord around neck, without compression, not applicable or unspecified; O70.1 Second degree perineal laceration during delivery

== ENCOUNTER → 2021-01-17 | Outpatient (CLI) | payer OTHER ==
[~2021-01-17] MED LIST changes: +B-12100T2 PO; +METF500T13 PO; +SM G150T PO
[2021-01-17 15:30] LABS: BASO # 0.1 10^3/uL (0.0-0.2); BASO % 1.1 % (0.0-1.0); EOS # 0.1 10^3/uL (0.0-0.5); EOS % 2.8 % (0.0-3.0); HEMATOCRIT 44.6 % (36.0-47.0); HEMOGLOBIN 14.2 g/dl (12.0-15.5); LYMPH # 1.4 10^3/uL (1.5-5.0); MEAN CORPUSCULAR HEMOGLOBIN 30.5 pg (27.0-33.0); MEAN CORPUSCULAR HGB CONC 31.8 g/dl (32.0-36.5); MEAN CORPUSCULAR VOLUME 95.9 fl (80.0-96.0); MONO # 0.4 10^3/uL (0.0-0.8); MONO % 7.8 % (2.0-8.0); NEUTROPHILS # 2.7 10^3/uL (1.5-8.5); NEUTROPHILS % 57.9 % (36.0-66.0); PLATELET COUNT, AUTOMATED 280 10^3/uL (150-450); RED BLOOD COUNT 4.65 10^6/uL (4.00-5.40); WHITE BLOOD COUNT 4.6 10^3/uL (4.0-10.0)
[2021-01-17 15:57] LABS: ALBUMIN 4.2 GM/DL (3.2-5.2); ALT/SGPT 25 U/L (12-78); BILIRUBIN,TOTAL 0.3 MG/DL (0.2-1.0); BLOOD UREA NITROGEN 13 MG/DL (7-18); CALCIUM LEVEL 9.1 MG/DL (8.5-10.1); CARBON DIOXIDE LEVEL 32 MEQ/L (21-32); CHLORIDE LEVEL 107 MEQ/L (98-107); CHOLESTEROL LEVEL 199 MG/DL (<200); CHOLESTEROL RISK RATIO 3.262 (<5); CREATININE FOR GFR 0.59 MG/DL (0.55-1.30); FREE T4 0.92 NG/DL (0.76-1.46); GLOMERULAR FILTRATION RATE > 60.0 (>60); GLUCOSE, FASTING 87 MG/DL (70-100); HDL CHOLESTEROL 61 MG/DL (>40); LDL CHOLESTEROL 124 MG/DL (<100); NON-HDL-C 138 MG/DL; POTASSIUM SERUM 4.2 MEQ/L (3.5-5.1); SODIUM LEVEL 141 MEQ/L (136-145); TOTAL PROTEIN 7.2 GM/DL (6.4-8.2); TRIGLYCERIDES LEVEL 68 MG/DL (<150)
[2021-01-19 20:07] LABS: ANA (HEP2) Positive (.)
== END ==
LOC: M WUC 11:27
PROVIDERS: ATTEND Nurse Practitioner Family
DX: R73.01 Impaired fasting glucose (principal); Z13.220 Encounter for screening for lipoid disorders; R21 Rash and other nonspecific skin eruption

== ENCOUNTER → 2021-02-26 | Outpatient (REF) | payer OTHER ==
[2021-02-26 18:23] LABS: THYROID STIMULATING HORMONE 1.35 uIU/ML (0.358-3.740)
== END ==
LOC: M PLALAB 15:18
PROVIDERS: ATTEND Specialist
DX: N92.6 Irregular menstruation, unspecified (principal)

== ENCOUNTER 2021-02-28 17:25 | Emergency (ER) | payer OTHER ==
[~2021-02-28] VITALS: Ht 157.5 cm; Wt 79.5 kg
[2021-02-28] MEDS ORDERED: NS 1,000 ML IV ONE (20:05)
[2021-02-28] MEDS ORDERED: KETOROLAC 30 MG/ML 1ML VIAL IV ONE (20:05)
[2021-02-28] MEDS ORDERED: METOCLOPRAMIDE INJ 10MG/2ML VIAL (J2765 PER 1) IV ONE (20:05)
[2021-02-28] MEDS ORDERED: diphenhydrAMINE 50MG/ML VIAL (J1200) IV ONE (20:05)
[2021-02-28 21:00] LABS: BASO # 0.1 10^3/uL (0.0-0.2); BASO % 0.8 % (0.0-1.0); EOS # 0.1 10^3/uL (0.0-0.5); HEMATOCRIT 45.3 % (36.0-47.0); HEMOGLOBIN 14.7 g/dl (12.0-15.5); LYMPH # 1.8 10^3/uL (1.5-5.0); LYMPH % 22.8 % (24.0-44.0); MEAN CORPUSCULAR HEMOGLOBIN 30.6 pg (27.0-33.0); MEAN CORPUSCULAR HGB CONC 32.5 g/dl (32.0-36.5); MEAN CORPUSCULAR VOLUME 94.4 fl (80.0-96.0); MONO # 0.5 10^3/uL (0.0-0.8); MONO % 6.3 % (2.0-8.0); NEUTROPHILS # 5.3 10^3/uL (1.5-8.5); NEUTROPHILS % 68.7 % (36.0-66.0); PLATELET COUNT, AUTOMATED 318 10^3/uL (150-450); WHITE BLOOD COUNT 7.7 10^3/uL (4.0-10.0)
--- NOTE | 2021-02-28 21:03 | REPVR ---
PROCEDURE INFORMATION: Exam: CT Head Without Contrast Exam date and time: 02/28/2021 8:11 PM Age: 30 years old Clinical indication: Pain; Headache; Additional info: New onset headache TECHNIQUE: Imaging protocol: Computed tomography of the head without contrast. Radiation optimization: All CT scans at this facility use at least one of these dose optimization techniques: automated exposure control; mA and/or kV adjustment per patient size (includes targeted exams where dose is matched to clinical indication); or iterative reconstruction. COMPARISON: No relevant prior studies available. FINDINGS: Brain: Normal. No hemorrhage. Unremarkable white matter. No mass effect. Cerebral ventricles: No ventriculomegaly. Bones/joints: Unremarkable. No acute fracture. Paranasal sinuses: Visualized sinuses are unremarkable. No fluid levels. Mastoid air cells: Visualized mastoid air cells are well aerated. Soft tissues: Unremarkable. IMPRESSION: No acute intracranial abnormality. Electronically signed by: Shasta Webb On 02/28/2021 21:02:41 PM
[2021-02-28 21:10] LABS: BLOOD UREA NITROGEN 9 MG/DL (7-18); CALCIUM LEVEL 8.5 MG/DL (8.5-10.1); CARBON DIOXIDE LEVEL 30 MEQ/L (21-32); CHLORIDE LEVEL 106 MEQ/L (98-107); CREATININE FOR GFR 0.62 MG/DL (0.55-1.30); GLOMERULAR FILTRATION RATE > 60.0 (>60); GLUCOSE, FASTING 74 MG/DL (70-100); POTASSIUM SERUM 4.1 MEQ/L (3.5-5.1); SODIUM LEVEL 140 MEQ/L (136-145)
[2021-02-28 23:17] VITALS: BP 114/66
[2021-03-02 14:09] LABS: Lyme Disease IgG/IgM Antibodie <0.91 ISR (0.00-0.90); Lyme Disease IgM Ab Quantitati <0.80 index (0.00-0.79)
== END 2021-02-28 23:15 | disposition home or self-care (01) ==
LOC: M ED 17:25
DX: R51.9 Headache, unspecified (principal)
CPT/HCPCS: 70450; 80048; 85025; 86617; 96361; 96374; 96375; 99284; J1200; J1885; J2765

== ENCOUNTER 2021-06-22 09:52 | Inpatient (IN) | payer OTHER ==
[~2021-06-22] VITALS: Ht 157.5 cm; Wt 76.0 kg
[2021-06-22] MEDS: ASPIRIN 81MG ENTERIC TABLET PO SCH (09:00)
[2021-06-22] MEDS ORDERED: MICR1TAB18 PO (10:02)
[2021-06-22] MEDS ORDERED: ACETAMINOPHEN TAB 650MG DOSE (2X325MG) PO ONE (10:30)
[2021-06-22 10:52] LABS: BASO % 0.3 % (0.0-1.0); HEMATOCRIT 45.1 % (36.0-47.0); HEMOGLOBIN 14.7 g/dl (12.0-15.5); LYMPH # 0.7 10^3/uL (1.5-5.0); LYMPH % 11.1 % (24.0-44.0); MEAN CORPUSCULAR HEMOGLOBIN 29.2 pg (27.0-33.0); MEAN CORPUSCULAR HGB CONC 32.6 g/dl (32.0-36.5); MEAN CORPUSCULAR VOLUME 89.5 fl (80.0-96.0); MONO # 0.3 10^3/uL (0.0-0.8); NEUTROPHILS # 5.3 10^3/uL (1.5-8.5); NEUTROPHILS % 84.3 % (36.0-66.0); PLATELET COUNT, AUTOMATED 230 10^3/uL (150-450); RED BLOOD COUNT 5.04 10^6/uL (4.00-5.40); WHITE BLOOD COUNT 6.2 10^3/uL (4.0-10.0)
[2021-06-22 11:27] LABS: ALBUMIN 3.1 GM/DL (3.2-5.2); ALT/SGPT 38 U/L (12-78); BILIRUBIN,TOTAL 0.3 MG/DL (0.2-1.0); BLOOD UREA NITROGEN 6 MG/DL (7-18); C REACTIVE PROTEIN QUANTITATIV 9.28 MG/DL (0.00-0.30); CALCIUM LEVEL 8.1 MG/DL (8.5-10.1); CARBON DIOXIDE LEVEL 24 MEQ/L (21-32); CHLORIDE LEVEL 106 MEQ/L (98-107); CK-MB VALUE MASS < 1.0 NG/ML (<3.6); CPK CREATINE PHOSPHOKINASE 116 U/L (26-192); CREATININE FOR GFR 0.71 MG/DL (0.55-1.30); FERRITIN 84 NG/ML (8-252); GLOMERULAR FILTRATION RATE > 60.0 (>60); GLUCOSE, FASTING 104 MG/DL (70-100); LDH LACTATE DEHYDROGENASE 279 U/L (84-246); MB/CK RELATIVE INDEX 0.86 (< OR =4); POTASSIUM SERUM 3.9 MEQ/L (3.5-5.1); SODIUM LEVEL 139 MEQ/L (136-145); TROPONIN I < 0.02 NG/ML (< 0.10)
[2021-06-22] MEDS ORDERED: ONDANSETRON 4MG/2ML VIAL IV PRN (12:00)
[2021-06-22] MEDS: ALBUTEROL 90 MCG/ACT 8GM HFA INHALER INH SCH ×2 (12:00→20:00)
[2021-06-22] MEDS ORDERED: ALBUTEROL 90 MCG/ACT 8GM HFA INHALER INH PRN (12:10)
--- NOTE | 2021-06-22 12:11 | REP ---
INDICATION: Coronavirus workup. COMPARISON: No comparison chest x-ray. TECHNIQUE: Portable upright AP chest radiograph. FINDINGS: There are patchy areas of increased interstitial density in the left base medially and laterally, and in both upper perihilar regions bilaterally consistent with pneumonitis. The lungs are exposed at a relatively low level of inspiration. Cardiomediastinal silhouette is unremarkable. No pleural effusion is seen. IMPRESSION: Subtle patchy interstitial infiltrates bilaterally consistent with pneumonitis. <Electronically signed by Neal Mcnamara > 06/22/21 [id number]
[2021-06-22] MEDS ORDERED: VITMTA PO (12:19)
[2021-06-22] MEDS ORDERED: GNP400TA10 PO (12:19)
[2021-06-22] MEDS ORDERED: HOME MED LIST COMPLETE! XX SCH (12:20)
[2021-06-22] MEDS: PANTOPRAZOLE 40MG VIAL (C9113 PER 1) IV SCH ×2 (13:26→23:21)
[2021-06-22] MEDS: dexameTHASONE 4 MG/ML 1ML VIAL (J1100 PER 1MG) IV SCH (13:26)
[2021-06-22] MEDS ORDERED: NS 1,000 ML IV ONE (13:35)
[2021-06-22] MEDS ORDERED: IBUPROFEN 400MG TAB PO PRN (13:45)
--- NOTE | 2021-06-22 13:56 | HPEPDOC ---
General Date of Admission 06/22/21 Date of Service: Jun 22, 2021 Chief Complaint The patient is a 30-year-old female admitted with a reason for visit of Covid+/Sob. Source: Patient, RN/MD History of Present Illness 30-year-old with no past medical history history except for asthma as a child developed with respiratory tract symptoms including nasal congestion sore throat cough fever and chills on June 14, 2021 she had a Cov[facility] test done on 06/16/2021 [facility] which came [facility] positive. Her partner and her son are also positive. She has been having high-grade fever and chills at home along with nausea and vomiting body aches poor appetite. She has continued to have cough sore throat nasal congestion and 3 days ago started feeling chest tightness and shortness of breath worse on exertion which continued to get worse so came to the ED for evaluation. On walking into the ED patient was noted to be saturating at 80% in room air after sitting down and resting it improved to 89 to 90% in room air however on minimal movement she is again dropping down to 82% in room air so the patient was put on 2 L nasal cannula with that she was maintaining her saturations at around 92% to 95%. Patient also noted to be febrile at 103.7. Chest x-ray showed subtle patchy infiltrates bilaterally. Patient is admitted for COVID-19 pneumonia with hypoxic respiratory failure Home Medications Scheduled Garlic (Garlic) 400 Mg Tablet, 400 MG PO QHS, (Reported) Multivitamins (Thera M Plus Tablet) 1 Each Tablet, 1 TAB PO QHS, (Reported) Norethindrone AC-Eth Estradiol (Microgestin 21 1.5-30 Tab) 1 Each Tablet, 1 TAB PO QHS, (Reported) Allergies Coded Allergies: No Known Allergies (Unverified , 02/28/17) Past Medical History Medical History Asthma as a child Gestational diabetes Ovarian cyst Surgical History section Family History Significant Family History: Diabetes (Mother) Social History * Smoker: non-smoker Alcohol: rarely Drugs: denies A-FIB/CHADSVASC A-FIB History Current/History of A-Fib/PAF?: No Review of Systems Constitutional: Reports: Chills, Fever, Malaise, Weakness, Fatigue Eyes: Denies: Pain, Vision change ENT: Reports: Head Aches, Sinus Congestion, Sore Throat Skin: Denies: Rash, Lesions, Breakdown Pulmonary: Reports: Dyspnea, Cough Cardiovascular: Reports: Lt Headedness; Denies: Chest Pain, Palpitations, Orthopnea, Paroxysmal Noc. Dyspnea Gastrointestinal: Reports: Nausea, Vomiting; Denies: Abdominal Pain, Diarrhea Genitourinary: Denies: Dysuria, Frequency, Incontinence, Retention Hematologic: Denies: Bruising, Bleeding Excessively Musculoskeletal: Reports: Muscle Pain; Denies: Joint Pain, Spasms Neurological: Denies: Weakness, Numbness, Change in speech, Confusion Physical Examination General Exam: Positive: Alert, Cooperative, No Acute Distress Eye Exam: Positive: PERRLA, Conjunctiva & lids normal, EOMI; Negative: Sclera icteric ENT Exam: Positive: Atraumatic, Mucous membr. moist/pink, Pharynx Normal Neck Exam: Positive: Supple; Negative: JVD, thyromegaly Chest Exam: Positive: Rhonchi, Other (Fine diffuse crackles); Negative: Wheezing Heart Exam: Positive: Rate Normal, Regular Rhythm, Normal S1, Normal S2; Negative: Murmurs, Rubs Telemetry: Positive: No significant arrhythmia Abdomen Exam: Positive: Normal bowel sounds, Soft; Negative: Tenderness Extremity Exam: Negative: Clubbing, Cyanosis, Edema Skin Exam: Positive: Nl turgor and temperature; Negative: Breakdown, Lesion Psych Exam: Positive: Memory Intact, Oriented x 3 Vital Signs Vital Signs Date Time Temp Pulse Resp B/P (MAP) Pulse Ox O2 Delivery O2 Flow Rate FiO2 06/22/21 12:18 100.2 88 20 126/61 (82) 95 Nasal Cannula 2.0 Laboratory Data Labs 24H Laboratory Tests 2 06/22/21 10:33: Immature Granulocyte % (Auto) 0.3, Neutrophils (%) (Auto) 84.3H, Lymphocytes (%) (Auto) 11.1L, Monocytes (%) (Auto) 4.0, Eosinophils (%) (Auto) 0.0, Basophils (%) (Auto) 0.3, Neutrophils # (Auto) 5.3, Lymphocytes # (Auto) 0.7L, Monocytes # (Auto) 0.3, Eosinophils # (Auto) 0.0, Basophils # (Auto) 0.0, Nucleated Red Blood Cells % (auto) 0.0, D-Dimer, Quantitative 515.22H, Anion Gap 9, Glomerular Filtration Rate > 60.0, Calcium Level 8.1L, Ferritin 84, Total Bilirubin 0.3, Aspartate Amino Transf (AST/SGOT) 39H, Alanine Aminotransferase (ALT/SGPT) 38, Alkaline Phosphatase 71, Lactate Dehydrogenase 279H, Total Creatine Kinase 116, Creatine Kinase MB < 1.0, Creatine Kinase MB Relative Index 0.86, Troponin I < 0.02, C-Reactive Protein, Quantitative 9.28H, Total Protein 7.0, Albumin 3.1L, Albumin/Globulin Ratio 0.8L 06/22/21 10:36: Lactic Acid Level 1.0 06/22/21 10:52: POC pH (Misc Panel) 7.510H, POC Base Excess (Misc Panel) -1.0, POC Saturated Percent O2 (Misc) 94L, POC pO2 (Misc Panel) 63.0L, POC pCO2 (Misc Panel) 27.1L, POC HCO3 (Misc Panel) 21.6L, POC Total CO2 (Misc Panel) 22.0L CBC/BMP Laboratory Tests 06/22/21 10:33 Microbiology Microbiology 06/22/21 Blood Culture, Received Pending 06/22/21 Blood Culture, Received Pending Assessment/Plan 30-year-old with no past medical history history except for asthma as a child de veloped with respiratory tract symptoms including nasal congestion sore throat cough fever and chills on June 14, 2021 she had a Covid test done on 06/16/2021 at [facility] which came back positive. Her partner and her son are also positive. She has been having high-grade fever and chills at home along with nausea and vomiting body aches poor appetite. She has continued to have cough sore throat nasal congestion and 3 days ago started feeling dyspnea on exertion which continued to get worse so came to the ED for evaluation. On walking into the ED patient was noted to be saturating at 80% in room air after sitting down and resting it improved to 89 to 90% in room air however on minimal movement she is again dropping down to 82% in room air so the patient was put on 2 L nasal cannula with that she was maintaining her saturations at around 92% to 95%. Patient also noted to be febrile at 103.7. Chest x-ray showed subtle patchy infiltrates bilaterally. Patient is admitted for COVID-19 pneumonia with hypoxic respiratory failure. COVID-19 pneumonia Ordered Covid labs Will give dexamethasone, remdesivir, aspirin, Lovenox twice daily. Albuterol as needed. GI prophylaxis with PPI Encourage awake proning, incentive spirometer Oxygen as needed Continuous pulse oximetry Plan / VTE VTE Prophylaxis Ordered?: Yes hBarati Dillon MD Jun 22, 2021 13:56
[2021-06-22] MEDS ORDERED: SODIUM CHLORIDE 0.9% INJ 10 ML SYR IV ONE (14:00)
[2021-06-22] MEDS ORDERED: REMDESIVIR 200 MG in NS 250 ML IV ONE (15:00)
[2021-06-22] MEDS ORDERED: ENOXAPARIN 100MG/1ML SYRINGE (J1650 PER 10MG) SC SCH (21:00)
[2021-06-22] MEDS: ACETAMINOPHEN TAB 650MG DOSE (2X325MG) PO PRN (21:28)
[2021-06-22 22:35] VITALS: BP 134/88
[2021-06-22 23:00] VITALS: O2SAT 96
[2021-06-22] MEDS: ENOXAPARIN 40MG/0.4ML SYRINGE (J1650 PER 10MG) SC SCH (23:21)
[2021-06-23] VITALS (13 sets, daily range): BP systolic 116–132; BP diastolic 80–86; O2SAT 94–99
[2021-06-23] MEDS: ALBUTEROL 90 MCG/ACT 8GM HFA INHALER INH SCH ×5 (00:09→20:26)
[2021-06-23] MEDS: PANTOPRAZOLE 40MG VIAL (C9113 PER 1) IV SCH ×2 (08:33→21:36)
[2021-06-23] MEDS: ENOXAPARIN 40MG/0.4ML SYRINGE (J1650 PER 10MG) SC SCH ×2 (08:33→21:36)
[2021-06-23] MEDS: dexameTHASONE 4 MG/ML 1ML VIAL (J1100 PER 1MG) IV SCH (08:33)
[2021-06-23] MEDS: ASPIRIN 81MG ENTERIC TABLET PO SCH (08:33)
[2021-06-23 09:06] LABS: HEMATOCRIT 41.4 % (36.0-47.0); HEMOGLOBIN 13.3 g/dl (12.0-15.5); LYMPH # 0.7 10^3/uL (1.5-5.0); LYMPH % 13.6 % (24.0-44.0); MEAN CORPUSCULAR HGB CONC 32.1 g/dl (32.0-36.5); MEAN CORPUSCULAR VOLUME 90.2 fl (80.0-96.0); MONO # 0.4 10^3/uL (0.0-0.8); MONO % 7.6 % (2.0-8.0); NEUTROPHILS # 3.8 10^3/uL (1.5-8.5); NEUTROPHILS % 78.2 % (36.0-66.0); PLATELET COUNT, AUTOMATED 227 10^3/uL (150-450); RED BLOOD COUNT 4.59 10^6/uL (4.00-5.40); WHITE BLOOD COUNT 4.9 10^3/uL (4.0-10.0)
[2021-06-23 09:35] LABS: BLOOD UREA NITROGEN 8 MG/DL (7-18); CALCIUM LEVEL 8.3 MG/DL (8.5-10.1); CARBON DIOXIDE LEVEL 25 MEQ/L (21-32); CHLORIDE LEVEL 109 MEQ/L (98-107); GLOMERULAR FILTRATION RATE > 60.0 (>60); GLUCOSE, FASTING 97 MG/DL (70-100); MAGNESIUM LEVEL 2.2 MG/DL (1.8-2.4); POTASSIUM SERUM 3.9 MEQ/L (3.5-5.1); SODIUM LEVEL 142 MEQ/L (136-145)
[2021-06-23 09:37] LABS: ALBUMIN 2.6 GM/DL (3.2-5.2); BILIRUBIN,DIRECT 0.1 MG/DL (0.0-0.2); BILIRUBIN,TOTAL 0.3 MG/DL (0.2-1.0); TOTAL PROTEIN 6.3 GM/DL (6.4-8.2)
--- NOTE | 2021-06-23 11:24 | IPNPDOC ---
Subjective Date Seen The patient was seen on 06/23/21. Subjective Chief Complaint/HPI No acute events overnight. No fever this morning feels extremely weak and tired. Requiring 3 L of oxygen at present. We will try to wean oxygen. Objective Physical Examination General Exam: Positive: Alert, Cooperative, No Acute Distress Eye Exam: Positive: PERRLA, Conjunctiva & lids normal, EOMI; Negative: Sclera icteric ENT Exam: Positive: Atraumatic, Mucous membr. moist/pink, Pharynx Normal Neck Exam: Positive: Supple; Negative: JVD, thyromegaly Chest Exam: Positive: Rhonchi, Other (Fine diffuse crackles); Negative: Wheezing Heart Exam: Positive: Rate Normal, Regular Rhythm, Normal S1, Normal S2; Negative: Murmurs, Rubs Telemetry: Positive: No significant arrhythmia Abdomen Exam: Positive: Normal bowel sounds, Soft; Negative: Tenderness Extremity Exam: Negative: Clubbing, Cyanosis, Edema Skin Exam: Positive: Nl turgor and temperature; Negative: Breakdown, Lesion Psych Exam: Positive: Memory Intact, Oriented x 3 Assessment /Plan Assessment 30-year-old with no past medical history history except for asthma as a child developed with respiratory tract symptoms including nasal congestion sore throat cough fever and chills on June 14, 2021 she had a Covid test done on 06/16/2021 at [facility] which came back positive. Her partner and her son are also positive. She has been having high-grade fever and chills at home along with nausea and vomiting body aches poor appetite. She has continued to have cough sore throat nasal congestion and 3 days ago started feeling dyspnea on exertion which continued to get worse so came to the ED for evaluation. On walking into the ED patient was noted to be saturating at 80% in room air after sitting down and resting it improved to 89 to 90% in room air however on minimal movement she is again dropping down to 82% in room air so the patient was put on 2 L nasal cannula with that she was maintaining her saturations at around 92% to 95%. Patient also noted to be febrile at 103.7. Chest x-ray showed subtle patchy infiltrates bilaterally. Patient is admitted for COVID-19 pneumonia with hypoxic respiratory failure. COVID-19 pneumonia with hypoxia Ordered Covid labs On dexamethasone, remdesivir, aspirin, Lovenox twice daily. Albuterol as needed. GI prophylaxis with PPI Encourage awake proning, incentive spirometer Continuous pulse oximetry Plan/VTE VTE Prophylaxis Ordered?: Yes VS, I&O, 24H, Fishbone Vital Signs/I&O Vital Signs Date Time Temp Pulse Resp B/P (MAP) Pulse Ox O2 Delivery O2 Flow Rate FiO2 06/23/21 08:46 3.0 06/23/21 06:00 99 Nasal Cannula 06/23/21 05:29 97.6 97 20 126/80 (95) I&O- Last 24 Hours up to 6 AM 06/23/21 06:00 Intake Total 390 ml Output Total 400 ml Balance -10 ml Laboratory Data 24H LABS Laboratory Tests 2 06/23/21 08:33: Immature Granulocyte % (Auto) 0.6, Neutrophils (%) (Auto) 78.2H, Lymphocytes (%) (Auto) 13.6L, Monocytes (%) (Auto) 7.6, Eosinophils (%) (Auto) 0.0, Basophils (%) (Auto) 0.0, Neutrophils # (Auto) 3.8, Lymphocytes # (Auto) 0.7L, Monocytes # (Auto) 0.4, Eosinophils # (Auto) 0.0, Basophils # (Auto) 0.0, Nucleated Red Blood Cells % (auto) 0.0, Anion Gap 8, Glomerular Filtration Rate > 60.0, Calcium Level 8.3L, Magnesium Level 2.2, Total Bilirubin 0.3, Direct Bilirubin 0.1, Aspartate Amino Transf (AST/SGOT) 35, Alanine Aminotransferase (ALT/SGPT) 43, Alkaline Phosphatase 60, Total Protein 6.3L, Albumin 2.6L, Albumin/Globulin Ratio 0.7L CBC/BMP Laboratory Tests 06/23/21 08:33 Microbiology Microbiology 06/22/21 Blood Culture - Preliminary, Resulted No growth after 24 hours . All specim... 06/22/21 Blood Culture - Preliminary, Resulted No growth after 24 hours . All specim... Bharati Dillon MD Jun 23, 2021 11:24
[2021-06-23] MEDS ORDERED: SODIUM CHLORIDE 0.9% INJ 10 ML SYR IV SCH (13:00)
[2021-06-23] MEDS: REMDESIVIR 100 MG in NS 250 ML IV SCH (15:52)
[2021-06-23] MEDS: ACETAMINOPHEN TAB 650MG DOSE (2X325MG) PO PRN (15:57)
[2021-06-23] MEDS ORDERED: MULTIVITAMINS/MINERALS THERAP 1 TAB PO SCH (21:00)
[2021-06-23] MEDS ORDERED: [UNRECOGNIZED DRUG - OTHER] PO SCH (23:40)
[2021-06-23] MEDS ORDERED: NORETHINDRONE PO SCH (23:40)
[2021-06-24] MEDS ORDERED: AZURETTE PO SCH (01:10)
[2021-06-24 05:44] VITALS: BP 126/89
[2021-06-24] MEDS: ACETAMINOPHEN TAB 650MG DOSE (2X325MG) PO PRN (05:46)
[2021-06-24 05:57] LABS: BASO % 0.1 % (0.0-1.0); HEMATOCRIT 43.4 % (36.0-47.0); HEMOGLOBIN 13.8 g/dl (12.0-15.5); LYMPH # 1.1 10^3/uL (1.5-5.0); MEAN CORPUSCULAR HEMOGLOBIN 28.9 pg (27.0-33.0); MEAN CORPUSCULAR HGB CONC 31.8 g/dl (32.0-36.5); MONO # 0.6 10^3/uL (0.0-0.8); MONO % 7.5 % (2.0-8.0); NEUTROPHILS # 6.2 10^3/uL (1.5-8.5); NEUTROPHILS % 77.3 % (36.0-66.0); PLATELET COUNT, AUTOMATED 325 10^3/uL (150-450); RED BLOOD COUNT 4.77 10^6/uL (4.00-5.40); WHITE BLOOD COUNT 8.1 10^3/uL (4.0-10.0)
[2021-06-24 06:08] LABS: INR 0.99; PROTHROMBIN TIME 13.5 SECONDS (12.7-14.5)
[2021-06-24 06:34] LABS: ALBUMIN 2.9 GM/DL (3.2-5.2); ALT/SGPT 70 U/L (12-78); BILIRUBIN,DIRECT < 0.1 MG/DL (0.0-0.2); BILIRUBIN,TOTAL 0.2 MG/DL (0.2-1.0); BLOOD UREA NITROGEN 11 MG/DL (7-18); CALCIUM LEVEL 8.3 MG/DL (8.5-10.1); CARBON DIOXIDE LEVEL 27 MEQ/L (21-32); CHLORIDE LEVEL 111 MEQ/L (98-107); CPK CREATINE PHOSPHOKINASE 68 U/L (26-192); CREATININE FOR GFR 0.59 MG/DL (0.55-1.30); FERRITIN 124 NG/ML (8-252); GLOMERULAR FILTRATION RATE > 60.0 (>60); GLUCOSE, FASTING 107 MG/DL (70-100); LDH LACTATE DEHYDROGENASE 245 U/L (84-246); MAGNESIUM LEVEL 2.2 MG/DL (1.8-2.4); NT-PRO BNP 299 PG/ML (<125); SODIUM LEVEL 144 MEQ/L (136-145); TOTAL PROTEIN 6.8 GM/DL (6.4-8.2); TROPONIN I < 0.02 NG/ML (< 0.10)
[2021-06-24] MEDS: ALBUTEROL 90 MCG/ACT 8GM HFA INHALER INH SCH ×3 (07:51→15:53)
[2021-06-24 08:00] VITALS: O2SAT 95
[2021-06-24] MEDS: ASPIRIN 81MG ENTERIC TABLET PO SCH (08:37)
[2021-06-24] MEDS: dexameTHASONE 4 MG/ML 1ML VIAL (J1100 PER 1MG) IV SCH (08:38)
[2021-06-24] MEDS: ENOXAPARIN 40MG/0.4ML SYRINGE (J1650 PER 10MG) SC SCH (08:38)
[2021-06-24] MEDS: PANTOPRAZOLE 40MG VIAL (C9113 PER 1) IV SCH (08:39)
[2021-06-24 11:00] VITALS: O2SAT 96
[2021-06-24] MEDS: REMDESIVIR 100 MG in NS 250 ML IV SCH (14:10)
[2021-06-24] MEDS ORDERED: PANT40TA29 PO (14:42)
[2021-06-24] MEDS ORDERED: ASPI-551 PO (14:42)
[2021-06-24] MEDS ORDERED: PRED10TA2 PO (14:42)
[2021-06-24] MEDS ORDERED: VENTAER INH (14:43)
--- NOTE | 2021-06-24 14:48 | DS.PDOC ---
Discharge Summary General Date of Admission Jun 22, 2021 at 12:10 Date of Discharge 06/24/21 Discharge Summary PROCEDURES PERFORMED DURING STAY: [None]. DISCHARGE DIAGNOSES: COVID- 19 pneumonia with Hypoxic respiratory failure COMPLICATIONS/CHIEF COMPLAINT: Pneumonia Due To Covid 19. HOSPITAL COURSE: 30-year-old with no past medical history history except for asthma as a child developed with respiratory tract symptoms including nasal congestion sore throat cough fever and chills on June 14, 2021 she had a Covid test done on 06/16/2021 at [facility] which came [facility] positive. Her partner and her son are also positive. She has been having high-grade fever and chills at home along with nausea and vomiting body aches poor appetite. She has continued to have cough sore throat nasal congestion and 3 days ago started feeling dyspnea on exertion which continued to get worse so came to the ED for evaluation. On walking into the ED patient was noted to be saturating at 80% in room air after sitting down and resting it improved to 89 to 90% in room air however on minimal movement she is again dropping down to 82% in room air so the patient was put on 2 L nasal cannula with that she was maintaining her saturations at around 92% to 95%. Patient also noted to be febrile at 103.7. Chest x-ray showed subtle patchy infiltrates bilaterally. Patient was admitted for COVID-19 pneumonia with hypoxic respiratory failure. COVID-19 pneumonia with hypoxic resp failure. hypoxia has resolved. prednisone taper, albuterol, asa, pantoprazole. DISCHARGE MEDICATIONS: Please see below. ALLERGIES: Please see below. PHYSICAL EXAMINATION ON DISCHARGE: VITAL SIGNS: Please see below. General Exam: Positive: Alert, Cooperative, No Acute Distress Eye Exam: Positive: PERRLA, Conjunctiva & lids normal, EOMI; Negative: Sclera icteric ENT Exam: Positive: Atraumatic, Mucous membr. moist/pink, Pharynx Normal Neck Exam: Positive: Supple; Negative: JVD, thyromegaly Chest Exam: Positive: Rhonchi, Other (Fine diffuse crackles); Negative: Wheezing Heart Exam: Positive: Rate Normal, Regular Rhythm, Normal S1, Normal S2; Negative: Murmurs, Rubs Telemetry: Positive: No significant arrhythmia Abdomen Exam: Positive: Normal bowel sounds, Soft; Negative: Tenderness Extremity Exam: Negative: Clubbing, Cyanosis, Edema Skin Exam: Positive: Nl turgor and temperature; Negative: Breakdown, Lesion Psych Exam: Positive: Memory Intact, Oriented x 3 LABORATORY DATA: Please see below. IMAGING: CXR: There are patchy areas of increased interstitial density in the left base medially and laterally, and in both upper perihilar regions bilaterally consistent with pneumonitis. The lungs are exposed at a relatively low level of inspiration. Cardiomediastinal silhouette is unremarkable. No pleural effusion is seen. IMPRESSION: Subtle patchy interstitial infiltrates bilaterally consistent with pneumonitis. ACTIVITY: [As tolerated]. DIET: As tolerated DISCHARGE PLAN: Home DISCHARGE INSTRUCTIONS: PMD in 1 week DISCHARGE CONDITION: [Stable]. TIME SPENT ON DISCHARGE: 35 minutes. Vital Signs/I&Os Vital Signs Date Time Temp Pulse Resp B/P (MAP) Pulse Ox O2 Delivery O2 Flow Rate FiO2 06/24/21 11:00 96 Room Air 06/24/21 08:38 1.0 06/24/21 05:44 97.4 62 22 126/89 (101) I&O- Last 24 Hours up to 6 AM 06/24/21 05:59 Intake Total 540 ml Output Total 650 ml Balance -110 ml Laboratory Data Labs 24H Laboratory Tests 2 06/24/21 05:33: Immature Granulocyte % (Auto) 1.1, Neutrophils (%) (Auto) 77.3H, Lymphocytes (%) (Auto) 14.0L, Monocytes (%) (Auto) 7.5, Eosinophils (%) (Auto) 0.0, Basophils (%) (Auto) 0.1, Neutrophils # (Auto) 6.2, Lymphocytes # (Auto) 1.1L, Monocytes # (Auto) 0.6, Eosinophils # (Auto) 0.0, Basophils # (Auto) 0.0, Nucleated Red Blood Cells % (auto) 0.0, Prothrombin Time 13.5, Prothromb Time International Ratio 0.99, Activated Partial Thromboplast Time 41.0H, Fibrinogen 601H, Anion Gap 6L, Glomerular Filtration Rate > 60.0, Calcium Level 8.3L, Magnesium Level 2.2, Ferritin 124, Total Bilirubin 0.2, Direct Bilirubin < 0.1, Aspartate Amino Transf (AST/SGOT) 42H, Alanine Aminotransferase (ALT/SGPT) 70, Alkaline Phosphatase 61, Lactate Dehydrogenase 245, Total Creatine Kinase 68, Troponin I < 0.02, HX-Eei-O-Type Natriuretic Peptide 299H, Total Protein 6.8, Albumin 2.9L, Albumin/Globulin Ratio 0.7L, Procalcitonin <0.05 CBC/BMP Laboratory Tests 06/24/21 05:33 Microbiology Microbiology 06/22/21 Blood Culture - Preliminary, Resulted No Growth after 48 hours. All Specime... 06/22/21 Blood Culture - Preliminary, Resulted No Growth after 48 hours. All Specime... Discharge Medications Scheduled Albuterol Sulfate (Ventolin Hfa) 18 Gm Hfa.aer.ad, 2 PUFF INH TID Aspirin (Aspirin EC) 81 Mg Tablet.dr, 81 MG PO DAILY Garlic (Garlic) 400 Mg Tablet, 400 MG PO QHS, (Reported) Multivitamins (Thera M Plus Tablet) 1 Each Tablet, 1 TAB PO QHS, (Reported) Norethindrone AC-Eth Estradiol (Microgestin 21 1.5-30 Tab) 1 Each Tablet, 1 TAB PO QHS, (Reported) Pantoprazole Sodium (Pantoprazole Sodium) 40 Mg Tablet.dr, 40 MG PO DAILY Prednisone (Prednisone) 10 Mg Tablet, 10 MG PO TAPER Take 4 tabs daily x 3 days, then 3 tabs daily x 3 days, then 2 tabs daily x 3 days, then 1 tab daily x 3 days and stop Allergies Coded Allergies: No Known Allergies (Unverified , 02/28/17) Bharati Dillon MD Jun 24, 2021 14:48
--- NOTE | 2021-06-24 19:44 | ECGEPIP ---
[facility] - ED Test Date: 2021-06-22 Pat Name: DRE SALAZAR Department: Room: - Gender: Female Principal Engineer: KG : 1990 Requested By: Sarath Lane Order Number: [id number] Reading MD: Ira Ramesh Measurements Intervals [place] Rate: 89 P: 5 IA: 130 QRS: -9 QRSD: 68 T: 18 QT: 344 QTc: 418 Interpretive Statements Normal sinus rhythm low voltage limb prwp no prior Electronically Signed on 06-24-2021 19:44:36 EDT by Ira Ramesh
== END 2021-06-24 16:07 | disposition home or self-care (01) | DRG 137 ==
LOC: M ED 09:52 → M ED INP 12:10 → ENRESERV 21:22 → M 4MAIN 22:35
PROVIDERS: ADMIT Internal Medicine Nephrology; ATTEND Internal Medicine Nephrology
PROC: XW033E5 Introduction of Remdesivir Anti-infective into Peripheral Vein, Percutaneous Approach, New Technology Group 5 (ICD-10-PCS; principal; 2021-06-22)
PROC: 3E0333Z Introduction of Anti-inflammatory into Peripheral Vein, Percutaneous Approach (ICD-10-PCS; 2021-06-22)
DX: U07.1 COVID-19 (principal); J96.91 Respiratory failure, unspecified with hypoxia; J12.82 Pneumonia due to coronavirus disease 2019

== ENCOUNTER → 2021-07-12 | Outpatient (CLI) | payer OTHER ==
[~2021-07-12] MED LIST changes: +ASPI-551 PO; +GNP400TA10 PO; +MICR1TAB18 PO; +PANT40TA29 PO; +PRED10TA2 PO; +VENTAER INH; +VITMTA PO
--- NOTE | 2021-07-12 16:55 | REP ---
INDICATION: PNEUMONIA, UNSPECIFIED ORGANISM. COMPARISON: Comparison chest x-ray June 22, 2021. TECHNIQUE: Two views.. FINDINGS: The lungs are well inflated and free of infiltrate. The pleural angles are sharp. The heart size is normal. Pulmonary vasculature is not increased. No significant bony abnormality is seen. IMPRESSION: Negative chest x-ray. <Electronically signed by Neal Mcnamara > 07/12/21 [id number]
== END ==
LOC: M RAD 11:57
PROVIDERS: ATTEND Nurse Practitioner Family
DX: J18.9 Pneumonia, unspecified organism (principal)

== ENCOUNTER → 2021-08-31 | Outpatient (REF) | payer OTHER ==
[2021-08-31 16:27] LABS: APPEARANCE, URINE CLEAR (CLEAR); BACTERIA, URINE AUTO NEGATIVE (NEGATIVE); BILIRUBIN, URINE AUTO NEGATIVE (NEGATIVE); BLOOD, URINE BLOOD 1+ (NEGATIVE); COLOR, URINE YELLOW (YELLOW); GLUCOSE, URINE (UA) AUTO NEGATIVE (NEGATIVE); KETONE, URINE AUTO NEGATIVE (NEGATIVE); LEUKOCYTE ESTERASE, URINE AUTO NEGATIVE (NEGATIVE); MUCUS, URINE SMALL (NEGATIVE); NITRITE, URINE AUTO NEGATIVE (NEGATIVE); PROTEIN, URINE AUTO NEGATIVE (NEGATIVE); RBC, URINE AUTO 0 /HPF (0-3); SQUAMOUS EPITHELIAL CELL UR AU 1 /HPF (0-6); UROBILINOGEN, URINE AUTO 0.2 mg/dL (0.0-2.0); WBC, URINE AUTO 0 /HPF (0-3)
[2021-08-31 16:30] LABS: BASO # 0.1 10^3/uL (0.0-0.2); BASO % 0.7 % (0.0-1.0); EOS # 0.2 10^3/uL (0.0-0.5); EOS % 1.6 % (0.0-3.0); HEMATOCRIT 43.9 % (36.0-47.0); LYMPH # 2.3 10^3/uL (1.5-5.0); LYMPH % 22.5 % (24.0-44.0); MEAN CORPUSCULAR HEMOGLOBIN 29.3 pg (27.0-33.0); MEAN CORPUSCULAR HGB CONC 31.9 g/dl (32.0-36.5); MEAN CORPUSCULAR VOLUME 91.8 fl (80.0-96.0); MONO # 0.6 10^3/uL (0.0-0.8); MONO % 6.2 % (2.0-8.0); NEUTROPHILS % 68.8 % (36.0-66.0); PLATELET COUNT, AUTOMATED 347 10^3/uL (150-450); RED BLOOD COUNT 4.78 10^6/uL (4.00-5.40); WHITE BLOOD COUNT 10.2 10^3/uL (4.0-10.0)
[2021-08-31 16:57] LABS: C REACTIVE PROTEIN QUANTITATIV 0.44 MG/DL (0.00-0.30); ERYTHROCYTE SEDIMENTATION RATE 2 mm/hr (0-20)
[2021-08-31 17:00] LABS: TOTAL PROTEIN,RANDOM URINE 9.3 MG/DL (0.0-12.0)
[2021-08-31 17:07] LABS: TOTAL 25(OH) VITAMIN D 20.3 NG/ML (30.0-100.0)
[2021-09-06 11:13] LABS: PTT LUPUS TYPE ANTICOAG SCREEN 1.2 (0-1.2)
[2021-09-06 11:19] LABS: DRVV CONFIRM 37.7 SEC; NORMALIZED RATIO 1.2 (0.00-1.20)
[2021-09-09 16:07] LABS: HEXAGONAL PHASE PHOSPHOLIPID 5 sec (0-11)
== END ==
LOC: M SFHCRHEU 15:26
PROVIDERS: ATTEND Internal Medicine
DX: R76.8 Other specified abnormal immunological findings in serum (principal); M54.9 Dorsalgia, unspecified; R53.82 Chronic fatigue, unspecified

== ENCOUNTER → 2021-10-22 | Outpatient (CLI) | payer OTHER ==
[2021-10-22 14:37] LABS: HEMOGLOBIN A1c 5.3 %
[2021-10-22 15:01] LABS: ALBUMIN 3.4 GM/DL (3.2-5.2); ALT/SGPT 17 U/L (12-78); BILIRUBIN,TOTAL 0.2 MG/DL (0.2-1.0); BLOOD UREA NITROGEN 14 MG/DL (7-18); CALCIUM LEVEL 8.7 MG/DL (8.5-10.1); CARBON DIOXIDE LEVEL 27 MEQ/L (21-32); CHLORIDE LEVEL 109 MEQ/L (98-107); CHOLESTEROL LEVEL 197 MG/DL (<200); CHOLESTEROL RISK RATIO 4.104 (<5); CREATININE FOR GFR 0.61 MG/DL (0.55-1.30); FREE T4 1.03 NG/DL (0.76-1.46); GLOMERULAR FILTRATION RATE > 60.0 (>60); GLUCOSE, FASTING 91 MG/DL (70-100); HDL CHOLESTEROL 48 MG/DL (>40); LDL CHOLESTEROL 120 MG/DL (<100); NON-HDL-C 149 MG/DL; POTASSIUM SERUM 4.5 MEQ/L (3.5-5.1); SODIUM LEVEL 141 MEQ/L (136-145); TOTAL PROTEIN 6.5 GM/DL (6.4-8.2); TRIGLYCERIDES LEVEL 143 MG/DL (<150)
== END ==
LOC: M PLALAB 10:30
PROVIDERS: ATTEND Nurse Practitioner Family
DX: E78.5 Hyperlipidemia, unspecified (principal); F41.1 Generalized anxiety disorder; R73.03 Prediabetes

== ENCOUNTER → 2021-11-15 | Outpatient (CLI) | payer OTHER | LOC: M WUC 11:08 | PROVIDERS: ATTEND Internal Medicine | DX: E55.9 Vitamin D deficiency, unspecified (principal) ==

== ENCOUNTER → 2022-05-02 | Outpatient (REF) ==
[~2022-05-02] MED LIST changes: -MICR1TAB18 PO; +NORE1TAB94 PO
== END ==
LOC: M LABSMTC 11:18
PROVIDERS: ATTEND Family Medicine
DX: Z20.822 Contact with and (suspected) exposure to COVID-19 (principal)

== ENCOUNTER → 2022-06-26 | Outpatient (REF) | LOC: M LABSMTC 10:59 | PROVIDERS: ATTEND Family Medicine | DX: Z20.822 Contact with and (suspected) exposure to COVID-19 (principal) ==

== ENCOUNTER → 2022-07-09 | Outpatient (REF) | LOC: M LABSMTC 10:36 | PROVIDERS: ATTEND Family Medicine | DX: Z20.822 Contact with and (suspected) exposure to COVID-19 (principal); Z11.52 Encounter for screening for COVID-19 ==

== ENCOUNTER → 2022-07-29 | Outpatient (CLI) | payer OTHER ==
[2022-07-29 16:26] LABS: C REACTIVE PROTEIN QUANTITATIV 0.71 MG/DL (0.00-0.30); RHEUMATOID FACTOR QUANT < 10.0 IU/ML (<15.0)
== END ==
LOC: M RAD 14:25
PROVIDERS: ATTEND Nurse Practitioner Family
DX: M50.90 Cervical disc disorder, unspecified, unspecified cervical region (principal)

== ENCOUNTER → 2022-08-08 | Outpatient (REF) ==
[2022-08-08 13:38] LABS: RSV AMPLIFICATION NEGATIVE (NEGATIVE)
== END ==
LOC: M LABSMTC 11:00
PROVIDERS: ATTEND Family Medicine
DX: Z20.822 Contact with and (suspected) exposure to COVID-19 (principal)

== ENCOUNTER → 2022-08-27 | Outpatient (CLI) | payer OTHER | LOC: M SLEEP HO 13:41 | PROVIDERS: ATTEND Internal Medicine | DX: R53.82 Chronic fatigue, unspecified (principal) ==

== ENCOUNTER → 2023-03-07 | Outpatient (REF) | payer OTHER ==
[2023-03-07 17:34] LABS: BASO # 0.1 10^3/uL (0.0-0.2); BASO % 0.9 % (0.0-1.0); EOS # 0.1 10^3/uL (0.0-0.5); EOS % 0.9 % (0.0-3.0); HEMATOCRIT 41.2 % (36.0-47.0); HEMOGLOBIN 13.1 g/dl (12.0-15.5); MEAN CORPUSCULAR HEMOGLOBIN 28.4 pg (27.0-33.0); MEAN CORPUSCULAR HGB CONC 31.8 g/dl (32.0-36.5); MEAN CORPUSCULAR VOLUME 89.2 fl (80.0-96.0); MONO # 0.6 10^3/uL (0.0-0.8); MONO % 8.2 % (2.0-8.0); NEUTROPHILS # 4.3 10^3/uL (1.5-8.5); NEUTROPHILS % 61.9 % (36.0-66.0); PLATELET COUNT, AUTOMATED 323 10^3/uL (150-450); RED BLOOD COUNT 4.62 10^6/uL (4.00-5.40)
[2023-03-07 17:38] LABS: C REACTIVE PROTEIN QUANTITATIV < 0.40 MG/DL (<1.0)
[2023-03-07 17:39] LABS: ALBUMIN 3.8 G/DL (3.2-5.2); ALKALINE PHOSPHATASE 66 U/L (46-116); ALT/SGPT 18 U/L (7.0-40); AST/SGOT 15 U/L (<34); BILIRUBIN,TOTAL 0.4 MG/DL (0.3-1.2); BLOOD UREA NITROGEN 12 MG/DL (9-23); CALCIUM LEVEL 9.2 MG/DL (8.5-10.1); CARBON DIOXIDE LEVEL 26 MMOL/L (20-31); CHLORIDE LEVEL 106 MMOL/L (98-107); CREATININE FOR GFR 0.78 MG/DL (0.55-1.30); GLOMERULAR FILTRATION RATE > 60.0 (>60); GLUCOSE, FASTING 83 MG/DL (60-100); POTASSIUM SERUM 4.1 MMOL/L (3.5-5.1); SODIUM LEVEL 138 MMOL/L (136-145); TOTAL PROTEIN 6.7 G/DL (5.7-8.2)
[2023-03-07 17:40] LABS: THYROID STIMULATING HORMONE 1.408 uIU/ML (0.55-4.78)
[2023-03-07 17:41] LABS: TOTAL 25(OH) VITAMIN D 19.2 NG/ML (20.0-100.0)
[2023-03-07 17:42] LABS: FREE T4 1.18 NG/DL (0.89-1.76)
[2023-03-07 17:44] LABS: ERYTHROCYTE SEDIMENTATION RATE 6 mm/hr (0-20)
== END ==
LOC: M SFHCRHEU 13:17
PROVIDERS: ATTEND Internal Medicine
DX: M35.00 Sjogren syndrome, unspecified (principal); E78.5 Hyperlipidemia, unspecified; E55.9 Vitamin D deficiency, unspecified; R53.83 Other fatigue

== ENCOUNTER → 2023-08-04 | Outpatient (CLI) | payer OTHER ==
[2023-08-04 13:42] LABS: BASO # 0.1 10^3/uL (0.0-0.2); BASO % 0.9 % (0.0-1.0); EOS # 0.1 10^3/uL (0.0-0.5); EOS % 1.3 % (0.0-3.0); HEMATOCRIT 38.9 % (36.0-47.0); HEMOGLOBIN 12.1 g/dl (12.0-15.5); LYMPH # 1.7 10^3/uL (1.5-5.0); LYMPH % 24.4 % (24.0-44.0); MEAN CORPUSCULAR HEMOGLOBIN 27.5 pg (27.0-33.0); MEAN CORPUSCULAR HGB CONC 31.1 g/dl (32.0-36.5); MEAN CORPUSCULAR VOLUME 88.4 fl (80.0-96.0); MONO # 0.5 10^3/uL (0.0-0.8); MONO % 7.1 % (2.0-8.0); NEUTROPHILS # 4.6 10^3/uL (1.5-8.5); NEUTROPHILS % 66.2 % (36.0-66.0); PLATELET COUNT, AUTOMATED 317 10^3/uL (150-450); WHITE BLOOD COUNT 6.9 10^3/uL (4.0-10.0)
[2023-08-05 01:29] LABS: LIPASE 29 U/L (12-53)
[2023-08-05 01:31] LABS: ALBUMIN 3.5 G/DL (3.2-5.2); ALKALINE PHOSPHATASE 67 U/L (46-116); ALT/SGPT 13 U/L (7.0-40); AST/SGOT 15 U/L (<34); BILIRUBIN,TOTAL 0.3 MG/DL (0.3-1.2); BLOOD UREA NITROGEN 9 MG/DL (9-23); CALCIUM LEVEL 9.1 MG/DL (8.5-10.1); CARBON DIOXIDE LEVEL 28 MMOL/L (20-31); CHLORIDE LEVEL 106 MMOL/L (98-107); CHOLESTEROL LEVEL 180 MG/DL (<200); CHOLESTEROL RISK RATIO 2.68 (<5); CREATININE FOR GFR 0.61 MG/DL (0.55-1.30); GLOMERULAR FILTRATION RATE > 60.0 (>60); GLUCOSE, FASTING 91 MG/DL (60-100); HDL CHOLESTEROL 67.1 MG/DL (>40); LDL CHOLESTEROL 93.9 MG/DL (<100); NON-HDL-C 112.9 MG/DL; POTASSIUM SERUM 4.4 MMOL/L (3.5-5.1); SODIUM LEVEL 142 MMOL/L (136-145); TOTAL PROTEIN 6.5 G/DL (5.7-8.2); TRIGLYCERIDES LEVEL 95 MG/DL (<150)
[2023-08-05 01:32] LABS: THYROID STIMULATING HORMONE 1.321 uIU/ML (0.55-4.78)
[2023-08-05 01:33] LABS: TOTAL 25(OH) VITAMIN D 38.3 NG/ML (20.0-100.0)
== END ==
LOC: M PLALAB 10:32
PROVIDERS: ATTEND Nurse Practitioner Family
DX: E78.5 Hyperlipidemia, unspecified (principal); E55.9 Vitamin D deficiency, unspecified; R10.84 Generalized abdominal pain; R53.83 Other fatigue

== ENCOUNTER 2023-08-11 13:00 | Outpatient (RCR) | payer OTHER | END 2023-08-12 | LOC: M PT 13:00 | PROVIDERS: ATTEND Internal Medicine | DX: M54.9 Dorsalgia, unspecified (principal) ==

== ENCOUNTER → 2024-02-23 | Outpatient (CLI) | payer OTHER ==
[2024-02-23 10:24] LABS: BASO # 0.1 10^3/uL (0.0-0.2); BASO % 1.2 % (0.0-1.0); EOS # 0.1 10^3/uL (0.0-0.5); HEMATOCRIT 41.2 % (36.0-47.0); HEMOGLOBIN 12.7 g/dl (12.0-15.5); LYMPH # 1.6 10^3/uL (1.5-5.0); LYMPH % 27.2 % (24.0-44.0); MEAN CORPUSCULAR HEMOGLOBIN 27.1 pg (27.0-33.0); MEAN CORPUSCULAR HGB CONC 30.8 g/dl (32.0-36.5); MEAN CORPUSCULAR VOLUME 87.8 fl (80.0-96.0); MONO # 0.6 10^3/uL (0.0-0.8); MONO % 9.8 % (2.0-8.0); NEUTROPHILS # 3.5 10^3/uL (1.5-8.5); PLATELET COUNT, AUTOMATED 308 10^3/uL (150-450); RED BLOOD COUNT 4.69 10^6/uL (4.00-5.40)
[2024-02-23 10:50] LABS: ALBUMIN 3.5 G/DL (3.2-5.2); ALKALINE PHOSPHATASE 97 U/L (46-116); ALT/SGPT 28 U/L (7.0-40); AST/SGOT 14 U/L (<34); BILIRUBIN,DIRECT 0.2 MG/DL (<0.4); BILIRUBIN,TOTAL 0.5 MG/DL (0.3-1.2); BLOOD UREA NITROGEN 18 MG/DL (9-23); CALCIUM LEVEL 8.6 MG/DL (8.5-10.1); CARBON DIOXIDE LEVEL 25 MMOL/L (20-31); CHLORIDE LEVEL 106 MMOL/L (98-107); CREATININE FOR GFR 0.59 MG/DL (0.55-1.30); GLOMERULAR FILTRATION RATE > 60.0 (>60); GLUCOSE, FASTING 98 MG/DL (60-100); POTASSIUM SERUM 4.7 MMOL/L (3.5-5.1); SODIUM LEVEL 139 MMOL/L (136-145); TOTAL PROTEIN 6.2 G/DL (5.7-8.2)
[2024-02-23 10:51] LABS: COMPLEMENT C3 101.5 MG/DL (84.0-160.0)
[2024-02-24 15:08] LABS: COMPLEMENT TOTAL (CH50) > 60 U/mL (>41)
== END ==
LOC: M PLALAB 08:48
PROVIDERS: ATTEND Internal Medicine
DX: M35.00 Sjogren syndrome, unspecified (principal); Z79.899 Other long term (current) drug therapy

== ENCOUNTER → 2024-08-23 | Outpatient (CLI) | payer OTHER ==
[2024-08-23 15:30] LABS: HEMOGLOBIN A1c 5.4 % (4.0-6.0)
[2024-08-23 16:01] LABS: HEPATITIS B SURFACE ANTIGEN NEGATIVE (NEGATIVE)
[2024-08-23 16:13] LABS: HIV 1&2 SCREEN NEGATIVE (NEGATIVE)
[2024-08-23 16:22] LABS: HEPATITIS C VIRUS ABY INDEX < 0.02 INDEX (<0.8)
[2024-08-23 16:24] LABS: HEPATITIS B CORE ANTIBODY IGM NEGATIVE (NEGATIVE)
[2024-08-23 18:42] LABS: Trichomonas vaginalis (AMP) NOT DETECTED (NEGATIVE)
[2024-08-23 19:05] LABS: GC DNA AMPLIFICATION NEGATIVE (NEGATIVE)
[2024-08-25 02:12] LABS: DEHYDROEPIANDROSTERONE SULFATE 243 mcg/dL (19-237)
== END ==
LOC: M PLALAB 11:57
PROVIDERS: ATTEND Nurse Practitioner Family
DX: E28.2 Polycystic ovarian syndrome (principal); Z11.3 Encounter for screening for infections with a predominantly sexual mode of transmission; Z12.4 Encounter for screening for malignant neoplasm of cervix

== ENCOUNTER → 2024-11-08 | Outpatient (REF) | payer OTHER ==
[2024-11-08 16:46] LABS: BASO # 0.1 10^3/uL (0.0-0.2); EOS # 0.2 10^3/uL (0.0-0.5); EOS % 2.4 % (0.0-3.0); HEMOGLOBIN 14.1 g/dl (12.0-15.5); LYMPH # 1.7 10^3/uL (1.5-5.0); LYMPH % 21.4 % (24.0-44.0); MEAN CORPUSCULAR HEMOGLOBIN 28.6 pg (27.0-33.0); MEAN CORPUSCULAR VOLUME 89.2 fl (80.0-96.0); MONO # 0.8 10^3/uL (0.0-0.8); MONO % 9.4 % (2.0-8.0); NEUTROPHILS # 5.2 10^3/uL (1.5-8.5); NEUTROPHILS % 65.2 % (36.0-66.0); PLATELET COUNT, AUTOMATED 336 10^3/uL (150-450); RED BLOOD COUNT 4.93 10^6/uL (4.00-5.40); WHITE BLOOD COUNT 7.9 10^3/uL (4.0-10.0)
[2024-11-08 16:57] LABS: ALBUMIN 3.9 G/DL (3.2-5.2); ALKALINE PHOSPHATASE 78 U/L (35-104); ALT/SGPT 27 U/L (7.0-40); AST/SGOT 19 U/L (<34); BILIRUBIN,DIRECT 0.1 MG/DL (<0.4); BILIRUBIN,TOTAL 0.3 MG/DL (0.3-1.2); BLOOD UREA NITROGEN 11 MG/DL (9-23); C REACTIVE PROTEIN QUANTITATIV < 0.50 MG/DL (<1.0); CALCIUM LEVEL 8.9 MG/DL (8.5-10.1); CARBON DIOXIDE LEVEL 29 MMOL/L (20-31); CHLORIDE LEVEL 102 MMOL/L (98-107); CREATININE FOR GFR 0.68 MG/DL (0.55-1.30); GLOMERULAR FILTRATION RATE > 60.0 (>60); GLUCOSE, FASTING 78 MG/DL (60-100); POTASSIUM SERUM 4.4 MMOL/L (3.5-5.1); SODIUM LEVEL 141 MMOL/L (136-145); TOTAL PROTEIN 6.8 G/DL (5.7-8.2)
[2024-11-08 16:58] LABS: ERYTHROCYTE SEDIMENTATION RATE 2 mm/hr (0-20)
[2024-11-08 16:59] LABS: TOTAL 25(OH) VITAMIN D 17.3 NG/ML (20.0-100.0)
[2024-11-14 23:44] LABS: G6PD ADULT 16.6 U/g Hgb (7.0-20.5)
== END ==
LOC: M SFHCRHEU 13:09
PROVIDERS: ATTEND Internal Medicine
DX: M35.00 Sjogren syndrome, unspecified (principal); Z79.899 Other long term (current) drug therapy

== ENCOUNTER → 2024-11-09 | Outpatient (REF) | payer OTHER | LOC: M SFHCWAGY 13:29 | PROVIDERS: ATTEND Specialist | DX: R87.612 Low grade squamous intraepithelial lesion on cytologic smear of cervix (LGSIL) (principal) ==

== ENCOUNTER → 2025-01-25 | Outpatient (CLI) | payer OTHER | LOC: M PLAIMG 16:38 → M RAD 16:38 | PROVIDERS: ATTEND Internal Medicine | DX: M25.50 Pain in unspecified joint (principal) ==

== ENCOUNTER → 2025-02-14 | Outpatient (REF) | payer OTHER | LOC: M SFHCRHEU 15:44 | PROVIDERS: ATTEND Internal Medicine | DX: E55.9 Vitamin D deficiency, unspecified (principal) ==

== ENCOUNTER → 2025-05-03 | Outpatient (CLI) | payer OTHER | LOC: M RAD 16:34 | PROVIDERS: ATTEND Obstetrics & Gynecology | DX: N93.9 Abnormal uterine and vaginal bleeding, unspecified (principal); N83.291 Other ovarian cyst, right side ==

== ENCOUNTER → 2025-05-05 | Outpatient (CLI) | payer OTHER ==
[~2025-05-05] MED LIST changes: +NORE-23 PO; -NORE1TAB94 PO
== END ==
LOC: M RAD 09:24
PROVIDERS: ATTEND Nurse Practitioner Family
DX: R10.84 Generalized abdominal pain (principal); K76.0 Fatty (change of) liver, not elsewhere classified

== ENCOUNTER → 2025-05-30 | Outpatient (CLI) | payer OTHER ==
[2025-05-30 15:34] LABS: ALT/SGPT 15 U/L (7.0-40); AST/SGOT 18 U/L (<34); CALCIUM LEVEL 9.2 MG/DL (8.5-10.1); CARBON DIOXIDE LEVEL 29 MMOL/L (20-31); CHLORIDE LEVEL 105 MMOL/L (98-107); CHOLESTEROL LEVEL 204 MG/DL (<200); CHOLESTEROL RISK RATIO 3.01 (<5); CREATININE FOR GFR 0.72 MG/DL (0.55-1.30); GLOMERULAR FILTRATION RATE > 90.0 (>60); LDL CHOLESTEROL 117.3 MG/DL (<100); NON-HDL-C 136.3 MG/DL; POTASSIUM SERUM 4.6 MMOL/L (3.5-5.1); SODIUM LEVEL 142 MMOL/L (136-145); TRIGLYCERIDES LEVEL 95 MG/DL (<150)
[2025-05-30 15:36] LABS: BASO # 0.1 10^3/uL (0.0-0.2); BASO % 1.2 % (0.0-1.0); EOS # 0.1 10^3/uL (0.0-0.5); EOS % 2.1 % (0.0-3.0); LYMPH # 1.4 10^3/uL (1.5-5.0); LYMPH % 21.1 % (24.0-44.0); MONO # 0.5 10^3/uL (0.0-0.8); MONO % 7.8 % (2.0-8.0); NEUTROPHILS # 4.5 10^3/uL (1.5-8.5); NEUTROPHILS % 67.2 % (36.0-66.0); PLATELET COUNT, AUTOMATED 327 10^3/uL (150-450)
[2025-05-30 15:38] LABS: FREE T4 1.09 NG/DL (0.89-1.76)
== END ==
LOC: M PLALAB 12:59
PROVIDERS: ATTEND Nurse Practitioner Family
DX: E55.9 Vitamin D deficiency, unspecified (principal); R10.84 Generalized abdominal pain; R53.83 Other fatigue; E78.5 Hyperlipidemia, unspecified

== ENCOUNTER → 2025-06-30 | Outpatient (REF) | payer OTHER ==
[2025-06-30 16:22] LABS: APPEARANCE, URINE HAZY (CLEAR); BACTERIA, URINE AUTO NEGATIVE (NEGATIVE); BILIRUBIN, URINE AUTO NEGATIVE (NEGATIVE); BLOOD, URINE BLOOD NEGATIVE (NEGATIVE); GLUCOSE, URINE (UA) AUTO NEGATIVE (NEGATIVE); KETONE, URINE AUTO TRACE mg/dL (NEGATIVE); LEUKOCYTE ESTERASE, URINE AUTO NEGATIVE (NEGATIVE); MUCUS, URINE SMALL (NEGATIVE); NITRITE, URINE AUTO NEGATIVE (NEGATIVE); PROTEIN, URINE AUTO 1+ mg/dL (NEGATIVE); RBC, URINE AUTO 0 /HPF (0-3); SPECIFIC GRAVITY URINE AUTO 1.027 (1.002-1.035); SQUAMOUS EPITHELIAL CELL UR AU 1 /HPF (0-6); UROBILINOGEN, URINE AUTO 0.2 mg/dL (0.0-2.0); WBC, URINE AUTO 0 /HPF (0-3)
[2025-06-30 16:35] LABS: TOTAL PROTEIN,RANDOM URINE 48.0 MG/DL (0.0-14.0)
[2025-06-30 18:33] LABS: C REACTIVE PROTEIN QUANTITATIV < 0.50 MG/DL (<1.0)
[2025-06-30 18:35] LABS: TOTAL 25(OH) VITAMIN D 20.6 NG/ML (20.0-100.0)
[2025-06-30 18:40] LABS: COMPLEMENT C4 27.0 MG/DL (12-36)
== END ==
LOC: M SFHCRHEU 13:39
PROVIDERS: ATTEND Internal Medicine
DX: M35.00 Sjogren syndrome, unspecified (principal); E55.9 Vitamin D deficiency, unspecified; Z79.899 Other long term (current) drug therapy

== ENCOUNTER → 2025-07-07 | Outpatient (CLI) | payer OTHER | LOC: M RAD 15:53 | PROVIDERS: ATTEND Nurse Practitioner Family | DX: N92.6 Irregular menstruation, unspecified (principal); N83.292 Other ovarian cyst, left side ==

== ENCOUNTER → 2025-07-09 | Outpatient (CLI) | payer OTHER | LOC: M LAB 10:17 | PROVIDERS: ATTEND Family Medicine | DX: R93.89 Abnormal findings on diagnostic imaging of other specified body structures (principal) ==

== ENCOUNTER → 2025-09-01 | Outpatient (CLI) | payer OTHER | LOC: M WHC 09:50 | PROVIDERS: ATTEND Family Medicine | DX: N83.292 Other ovarian cyst, left side (principal) ==